=== PATIENT | male | born 1955 | race Caucasian/White ===

== ENCOUNTER 2017-01-30 09:12 | Emergency (ER) | payer MEDICAID, OTHER ==
[~2017-01-30] VITALS: Ht 175.3 cm; Wt 84.5 kg
[2017-01-30 09:19] VITALS: Ht 175.3 cm; Wt 84.5 kg
[2017-01-30] MEDS ORDERED: ASPIRIN 81 MG TAB PO STA (09:49)
[2017-01-30] MEDS ORDERED: NITROGLYCERIN 2% 1 GM OINT PKT TD STA (09:49)
[2017-01-30] MEDS ORDERED: NITROGLYCERIN (SL) 0.4 MG TAB SL PRN (10:00)
--- NOTE | 2017-01-30 10:32 | RADRPT ---
PROCEDURE: XR Chest. CLINICAL INDICATION: chest pain TECHNIQUE: Single frontal view of the chest was obtained COMPARISON: None FINDINGS: The heart and mediastinum are within normal limits. The lungs are clear. There is no pleural effusion or pneumothorax. RPTAT: AA IMPRESSION: No acute disease. .Steve Samuel MD, Date Time Electronically viewed and signed by .Steve Samuel MD, on 01/30/2017 10:31 .S/
[2017-01-30 10:54] LABS: ADD SCAN DIFF NO
[2017-01-30 10:56] LABS: BASOPHILS % 0.8 % (0.0-2.0); EOSINOPHILS # 0.1 10^3/ul (0.0-0.5); EOSINOPHILS % 2.6 % (0.0-7.0); HEMATOCRIT 42.7 % (42.0-52.0); HEMOGLOBIN 14.1 g/dl (14.0-18.0); LYMPHOCYTES # 0.8 10^3/ul (0.8-2.9); LYMPHOCYTES % 15.2 % (15.0-51.0); MEAN CORPUSCULAR VOLUME 84.9 fl (82.0-101.0); MEAN PLATELET VOLUME 9.2 fl (7.4-10.4); MONOCYTE # 0.5 10^3/ul (0.3-0.9); NEUTROPHIL # 3.6 10^3/ul (1.6-7.5); NEUTROPHILS % 71.8 % (39.0-77.0); PLATELET COUNT 323 10^3/UL (140-415); RED BLOOD COUNT 5.03 10^6/ul (4.70-6.10); RED CELL DISTRIBUTION WIDTH 14.4 % (11.5-14.5)
[2017-01-30 11:16] LABS: INR 1.07; PROTIME 13.9 Sec (12.2-14.2); PT RATIO 1.1
[2017-01-30 11:21] LABS: ANION GAP 13 (8-16); BLOOD UREA NITROGEN 19 mg/dl (7-20); CALCIUM 9.4 mg/dl (8.4-10.2); CARBON DIOXIDE 28 mmol/L (21-31); CHLORIDE 105 mmol/L (97-110); GLUCOSE 101 mg/dl (70-220); POTASSIUM 4.3 mmol/L (3.5-5.1); SODIUM 142 mmol/L (135-144)
[2017-01-30 11:34] LABS: TROPONIN-I < 0.012 ng/ml (0.00-0.12)
[2017-01-30] MEDS ORDERED: IBUP-1542 PO (11:52)
--- NOTE | 2017-01-30 11:54 | ERD ---
ER Documentation Chief Complaint Date/Time DATE: 01/30/17 TIME: 11:54 Chief Complaint BACK PAIN RADIATING TO CHEST PRESSURE HPI Patient is a 61-year-old male with no medical problems who presents with chest pain. He said that 3 weeks ago he started with pain on the left side that he described as a "fire". He thought it was a muscle pull and tried massage. He has had cough and shortness of breath and feels like he cannot catch a full breath. He has pressure-like pain in the left chest and back which is worsening over the past 3 weeks. Upon review of old medical records this is the patient's first visit to the emergency department. He says that his primary doctor is Dr. Rodriguez. ROS All systems reviewed and are negative except as per history of present illness. Medications Home Meds Active Scripts Ibuprofen* (Motrin*) 600 Mg Tab, 600 MG PO Q8, #30 TAB Prov:AJITH ALONZO MD 01/30/17 Allergies Allergies: Coded Allergies: No Known Allergy (Unverified , 01/30/17) PMhx/Soc Medical and Surgical Hx: pt denies Medical Hx History of Surgery: Yes (knee replacement) Anesthesia Reaction: No Hx Neurological Disorder: No Hx Respiratory Disorders: No Hx Cardiac Disorders: No Hx Psychiatric Problems: No Hx Miscellaneous Medical Probl: No Hx Alcohol Use: No Hx Substance Use: No Hx Tobacco Use: No Smoking Status: Never smoker FmHx Family History: No coronary disease Physical Exam Vitals Vital Signs Date Time Temp Pulse Resp B/P Pulse Ox O2 Delivery O2 Flow Rate FiO2 01/30/17 09:19 98.7 85 20 159/91 98 Physical Exam Const: No acute distress Head: Atraumatic Eyes: Normal Conjunctiva ENT: Normal External Ears, Nose and Mouth. Neck: Full range of motion..~ No meningismus. Resp: Clear to auscultation bilaterally Cardio: Regular rate and rhythm, no murmurs Abd: Soft, non tender, non distended. Normal bowel sounds Skin: No petechiae or rashes Back: No midline or flank tenderness Ext: No cyanosis, or edema Neur: Awake and alert Psych: Normal Mood and Affect Result Diagram: 01/30/17 1018 01/30/17 1018 Results 24 hrs Laboratory Tests Test 01/30/17 10:18 White Blood Count 5.010^3/ul Red Blood Count 5.0310^6/ul Hemoglobin 14.1g/dl Hematocrit 42.7% Mean Corpuscular Volume 84.9fl Mean Corpuscular Hemoglobin 28.0pg Mean Corpuscular Hemoglobin Concent 33.0g/dl Red Cell Distribution Width 14.4% Platelet Count 50116^3/UL Mean Platelet Volume 9.2fl Neutrophils % 71.8% Lymphocytes % 15.2% Monocytes % 9.0% Eosinophils % 2.6% Basophils % 0.8% Nucleated Red Blood Cells % 0.0/100WBC Neutrophils # 3.610^3/ul Lymphocytes # 0.810^3/ul Monocytes # 0.510^3/ul Eosinophils # 0.110^3/ul Basophils # 0.010^3/ul Nucleated Red Blood Cells # 0.010^3/ul Prothrombin Time 13.9Sec Prothrombin Time Ratio 1.1 INR International Normalized Ratio 1.07 Activated Partial Thromboplast Time 35.0Sec Sodium Level 142mmol/L Potassium Level 4.3mmol/L Chloride Level 105mmol/L Carbon Dioxide Level 28mmol/L Anion Gap 13 Blood Urea Nitrogen 19mg/dl Creatinine 0.70mg/dl Glucose Level 101mg/dl Calcium Level 9.4mg/dl Troponin I < 0.012ng/ml Current Medications Medications (Trade) Dose Ordered Sig/Veronika Route PRN Reason Start Time Stop Time Status Last Admin Dose Admin Aspirin (Aspirin) 162 mg ONCE STAT PO 01/30/17 09:49 01/30/17 09:50 DC 01/30/17 10:15 Nitroglycerin (Nitroglycerin 2% Oint) 1 inch ONCE STAT TD 01/30/17 09:49 01/30/17 09:50 DC 01/30/17 10:16 Nitroglycerin (Nitroglycerin (Sl Tab) 0.4 Mg) 1 tab Q5M UP TO 3 DOSES PRN SL CHEST PAIN 01/30/17 10:00 01/30/17 10:15 Procedures/MDM EKG #1 read by me: Rate/Rhythm: Regular rate and rhythm at a rate of 79 Intervals: Normal Impression: No evidence of ischemia or arrhythmia EKG #2 read by me: Rate/Rhythm: Regular rate and rhythm at a rate of 82 Intervals: Normal Impression: No evidence of ischemia or arrhythmia Chest x-ray negative per radiology. Patient is a 61-year-old female with no medical problems who presents with chest pain. I am concerned about potential acute coronary syndrome. At this point I doubt pneumonia, pneumothorax, pulmonary embolism, or aortic dissection. His initial laboratory studies are negative and 2 EKGs were negative. However the patient does not want to stay to be admitted in the hospital. I explained to him the risks and benefits of signing out AGAINST MEDICAL ADVICE including heart attack and and he understands. He still does not want to stay in the hospital. I told him he can return at any time for further workup. The patient understands the plan and is going to leave AGAINST MEDICAL ADVICE. Departure Diagnosis: Primary Impression: Chest pain Chest pain type: unspecified Qualified Code: R07.9 - Chest pain, unspecified type Condition: Fair Patient Instructions: Chest Pain, Uncertain Cause Referrals: Dr. Rodriguez your doctor Additional Instructions: Visite a donavan rojas para un EXAMEN.Regrese a estas instalaciones si no se mejora delvis esperbamos o delvis le félix. AJITH ALONZO MD Jan 30, 2017 11:54
[2017-01-30 12:17] VITALS: BP 143/75; PULSE 62; RESP 20; TEMP 98.7
== END 2017-01-30 12:20 | disposition home or self-care (01) ==
LOC: E/R 09:12
DX: R07.89 Other chest pain (principal); R40.2142 Coma scale, eyes open, spontaneous, at arrival to emergency department; R40.2252 Coma scale, best verbal response, oriented, at arrival to emergency department; R40.2362 Coma scale, best motor response, obeys commands, at arrival to emergency department; Z96.659 Presence of unspecified artificial knee joint
CPT/HCPCS: 36415; 71010; 80048; 84484; 85025; 85610; 85730; 93005; Z7502; Z7610

== ENCOUNTER 2017-02-24 23:35 | Inpatient (IN) | payer MEDICAID ==
[~2017-02-24] VITALS: Ht 175.3 cm; Wt 59.0 kg
[~2017-02-24 23:35] MED LIST: IBUP-1542 PO
[2017-02-24 23:39] VITALS: Ht 175.3 cm; Wt 59.0 kg
--- NOTE | 2017-02-25 00:18 | ERA ---
ER Documentation Chief Complaint Date/Time DATE: 02/25/17 TIME: 00:18 Chief Complaint Chest pain HPI The patient is a 61-year-old male, presenting to the ER because of left-sided chest pain and numbness radiating to the left upper back intermittently for more than a month, worse when he laid down, associated with pleuritic chest pain. He denies chest pain with exertion of vomiting or diaphoresis. He was seen in the ER about 3 weeks ago for similar symptoms, has not seen his physician yet. He denies fever, cough, syncope, near syncope, abdominal pain, vomiting, dysuria, diarrhea. He does not smoke nor drink Past medical history/surgical history: None ROS All systems reviewed and are negative except as per history of present illness. Medications Home Meds Active Scripts Ibuprofen* (Motrin*) 600 Mg Tab, 600 MG PO Q8, #30 TAB Prov:AJITH ALONZO MD 01/30/17 Allergies Allergies: Coded Allergies: No Known Allergy (Unverified , 01/30/17) PMhx/Soc History of Surgery: Yes (knee replacement) Anesthesia Reaction: No Hx Neurological Disorder: No Hx Respiratory Disorders: No Hx Cardiac Disorders: No Hx Psychiatric Problems: No Hx Miscellaneous Medical Probl: No Hx Alcohol Use: No Hx Substance Use: No Hx Tobacco Use: No Smoking Status: Never smoker Physical Exam Vitals Vital Signs Date Time Temp Pulse Resp B/P Pulse Ox O2 Delivery O2 Flow Rate FiO2 02/25/17 00:16 91 24 146/95 97 Room Air 02/24/17 23:39 97.9 97 20 156/94 97 Physical Exam Const: No acute distress. Head: Atraumatic. Eyes: Normal Conjunctiva. ENT: Normal External Ears, Nose and Mouth. Neck: Full range of motion. No meningismus. Resp: Clear to auscultation bilaterally. Cardio: Regular rate and rhythm. Abd: Soft, non distended, normal bowel sounds, non tender. Skin: No petechiae or rashes. Back: No midline or flank tenderness. Moderate thoracic spinal tenderness, no crepitus, no erythema Ext: No cyanosis, or edema. Neur: Awake and alert. No focal deficit Psych: Normal Mood and Affect. Result Diagram: 02/25/17 0045 02/25/17 0045 Results 24 hrs Laboratory Tests Test 02/25/17 00:45 White Blood Count 5.610^3/ul Red Blood Count 4.7510^6/ul Hemoglobin 13.3g/dl Hematocrit 40.0% Mean Corpuscular Volume 84.2fl Mean Corpuscular Hemoglobin 28.0pg Mean Corpuscular Hemoglobin Concent 33.3g/dl Red Cell Distribution Width 14.7% Platelet Count 87591^3/UL Mean Platelet Volume 9.1fl Neutrophils % 70.1% Lymphocytes % 14.2% Monocytes % 11.9% Eosinophils % 2.5% Basophils % 0.9% Nucleated Red Blood Cells % 0.0/100WBC Neutrophils # 3.910^3/ul Lymphocytes # 0.810^3/ul Monocytes # 0.710^3/ul Eosinophils # 0.110^3/ul Basophils # 0.110^3/ul Nucleated Red Blood Cells # 0.010^3/ul Prothrombin Time 13.3Sec Prothrombin Time Ratio 1.0 INR International Normalized Ratio 1.01 Activated Partial Thromboplast Time 33.0Sec Sodium Level 139mmol/L Potassium Level 3.7mmol/L Chloride Level 103mmol/L Carbon Dioxide Level 26mmol/L Anion Gap 14 Blood Urea Nitrogen 24mg/dl Creatinine 0.88mg/dl Glucose Level 105mg/dl Calcium Level 9.5mg/dl Troponin I < 0.012ng/ml Current Medications Medications (Trade) Dose Ordered Sig/Veronika Route PRN Reason Start Time Stop Time Status Last Admin Dose Admin Morphine Sulfate (morphine) 4 mg ONCE STAT IV 02/25/17 02:23 02/25/17 02:24 DC 02/25/17 02:32 Ondansetron HCl (Zofran Inj) 4 mg ONCE STAT IV 02/25/17 02:23 02/25/17 02:24 DC 02/25/17 02:32 IV Flush 10 ml 10 ml STK-MED ONCE .ROUTE 02/25/17 02:50 02/25/17 02:51 DC 02/25/17 02:50 Sodium Chloride 100 ml @ ud STK-MED ONCE .ROUTE 02/25/17 02:50 02/25/17 02:51 DC 02/25/17 02:50 Iohexol 100 ml @ ud STK-MED ONCE .ROUTE 02/25/17 02:50 02/25/17 02:51 DC 02/25/17 02:50 Sodium Chloride (NS) 1,000 ml @ 70 mls/hr [id number] IV 02/25/17 03:52 IV Flush (NS 3 ml) 3 ml PER PROTOCOL IV 02/25/17 04:00 Ondansetron HCl (Zofran Inj) 4 mg Q6H PRN IV NAUSEA AND/OR VOMITING 02/25/17 04:00 Acetaminophen (Tylenol Tab) 650 mg Q6H PRN PO PAIN LEVEL 1-3 OR FEVER 02/25/17 04:00 Morphine Sulfate (morphine) 2 mg Q4H PRN IV PAIN LEVEL 7-10 02/25/17 04:00 Docusate Sodium (Colace) 100 mg Q12H PRN PO CONSTIPATION 02/25/17 04:00 Bisacodyl (Dulcolax) 5 mg DAILY PRN PO CONSTIPATION 02/25/17 04:00 Pantoprazole (Protonix Iv) 40 mg DAILY@06 IV 02/25/17 06:00 Enoxaparin Sodium (Lovenox) 40 mg DAILY SC 02/25/17 09:00 Procedures/[place] [id number] Radiology Main Line: [phone] DIAGNOSTIC IMAGING REPORT Patient: HUNG STEVENS : 1955 Age: 61 Sex: M [id number] DOS: 02/25/17 0029 Ordering MD: SHON MABRY MD Location: E/R Room/Bed: PROCEDURE: CT angiogram of the chest with contrast. CLINICAL INDICATION: Chest and back pain. TECHNIQUE: CT angiogram of the chest was obtained using a multi-detector high -resolution CT. Contiguous axial images were obtained during the dynamic injection of 90 cc of Omnipaque 350 intravenous contrast. Coronal and sagittal reformatted images were obtained. 3-D reformatted images were also obtained. Images were reviewed on a PACS workstation. One or more of the following dose reduction techniques were used: - Automated exposure control. - Adjustment of the mA and/or kV according to patient size. - Use of iterative reconstruction technique. Exam CTD/vol = 16.79 mGy. Total exam DLP = 753.72 mGy-cm. COMPARISON: None. FINDINGS: The main pulmonary artery followed to the segmental divisions are well opacified. There is no filling defect or evidence of pulmonary embolism. The heart is normal in size. There is no pericardial thickening or effusion. The aorta is of normal course and caliber without evidence of aneurysm or dissection. There are multiple large left supraclavicular lymph nodes with the largest measuring 2.7 x 1.8 cm. The visualized thyroid is unremarkable. There are no enlarged axillary lymph nodes. There is increased soft tissue within the posterior mediastinum with a large conglomerate encasing the descending thoracic aorta and left main pulmonary artery which is moderately narrowed. There is extension to the paraspinal region from T2 through T10 levels. There are multiple enlarged paratracheal, prevascular and hilar lymph nodes, greater on the right, with the largest in the prevascular space measuring 3.5 x 2.6 cm. There is a small left-sided pleural effusion with underlying atelectasis. The central tracheobronchial tree is within normal limits. There are multiple enlarged retrocrural lymph nodes with the largest on the left measuring 1.8 x 1.9 cm. There are enlarged lymph nodes within the periaortic region with the largest on the left measuring 3.8 x 2.0 cm. IMPRESSION: No evidence of pulmonary embolism or aortic dissection. Posterior mediastinal and paraspinal soft tissue mass suggestive of neoplasm/ lymphoma. There is encasement of the descending thoracic aorta and left main pulmonary artery which is moderately narrowed. Moderate mediastinal and hilar adenopathy, greater on the left. There is mild left supraclavicular lymphadenopathy. Mild abdominal lymphadenopathy. Small left-sided pleural effusion. .Tae Loredo MD, MD Date Time Electronically viewed and signed by .Tae Loredo MD, on 02/25/2017 03:28 .T/ CC: SHON MABRY MD [place] [id number] Radiology Main Line: [phone] DIAGNOSTIC IMAGING REPORT Patient: HUNG STEVENS DOB: 1955 Age: 61 Sex: M MR #: [id number] DOS: 02/25/17 0029 Ordering MD: SHON MABRY MD Location: E/R Room/Bed: PROCEDURE: XR Chest. CLINICAL INDICATION: Chest pain. TECHNIQUE: Single frontal view of the chest. COMPARISON: 01/30/2017. FINDINGS: Cardiomegaly with tortuous thoracic aorta. Mild bibasilar atelectasis versus airspace disease. No signs of pleural fluid or pneumothorax are seen. The osseous structures and soft tissues are unremarkable. IMPRESSION: Mild bibasilar atelectasis versus airspace disease. RPTAT: [facility] Physician Raymond Date Time Electronically viewed and signed by Physician Raymond on 02/25/2017 00:52 RS/ CC: SHON MABRY MD EKG: At 2345 hrs. read by emergency physician Rate/Rhythm: Normal Sinus Rhythm 93 beats/min QRS, ST, T-waves: No ST elevation, no T inversion Impression: Normal EKG EKG: At 12:55 AM read by emergency physician Rate/Rhythm: Normal Sinus Rhythm 89 beats/min QRS, ST, T-waves: No ST elevation, no T inversion Impression: Normal EKG MEDICAL MAKING DECISION: The patient is a 61-year-old male, presenting with acute mediastinal mass, concerning for malignancy and/or lymphoma. He was treated with morphine 4 mg IV for pain, Zofran 4 mg IV for nausea with good response The differential diagnoses considered include but are not limited to acute coronary syndrome, acute myocardial infarction, pericarditis, pulmonary embolism , aortic dissection, pneumonia, pleural effusion, pneumothorax, GERD, chest wall pain. Departure Diagnosis: Primary Impression: Mediastinal mass Additional Impression: Anemia Condition: Stable Comments I discussed the findings with the patient. I discussed the patient with the on- call hospitalist Dr. Collazo who was made aware of the lab, the treatment, the patient condition. The patient is admitted to medical surgery bed at 3 AM The patient's blood pressure was elevated (>120/80) but appears stable without evidence of hypertension emergency or urgency. The patient was counseled about the risks of hypertension and urged to pursue outpatient monitoring and therapy within a week with their primary care physician. SHON MABRY MD Feb 25, 2017 00:18
--- NOTE | 2017-02-25 00:53 | RADRPT ---
PROCEDURE: XR Chest. CLINICAL INDICATION: Chest pain. TECHNIQUE: Single frontal view of the chest. COMPARISON: 01/30/2017. FINDINGS: Cardiomegaly with tortuous thoracic aorta. Mild bibasilar atelectasis versus airspace disease. No s igns of pleural fluid or pneumothorax are seen. The osseous structures and soft tissues are unremark able. IMPRESSION: Mild bibasilar atelectasis versus airspace disease. RPTAT: [facility] Physician Raymond Date Time Electronically viewed and signed by Physician Raymond on 02/25/2017 00:52 RS/
[2017-02-25 02:07] LABS: BASOPHIL # 0.1 10^3/ul (0.0-0.1); BASOPHILS % 0.9 % (0.0-2.0); EOSINOPHILS # 0.1 10^3/ul (0.0-0.5); EOSINOPHILS % 2.5 % (0.0-7.0); HEMOGLOBIN 13.3 g/dl (14.0-18.0); LYMPHOCYTES # 0.8 10^3/ul (0.8-2.9); LYMPHOCYTES % 14.2 % (15.0-51.0); MEAN CORPUSCULAR HGB CONC 33.3 g/dl (32.0-37.0); MEAN CORPUSCULAR VOLUME 84.2 fl (82.0-101.0); MEAN PLATELET VOLUME 9.1 fl (7.4-10.4); MONOCYTE # 0.7 10^3/ul (0.3-0.9); MONOCYTES % 11.9 % (0.0-11.0); NEUTROPHIL # 3.9 10^3/ul (1.6-7.5); NEUTROPHILS % 70.1 % (39.0-77.0); PLATELET COUNT 269 10^3/UL (140-415); RED BLOOD COUNT 4.75 10^6/ul (4.70-6.10); RED CELL DISTRIBUTION WIDTH 14.7 % (11.5-14.5); WHITE BLOOD COUNT 5.6 10^3/ul (4.8-10.8)
[2017-02-25 02:21] LABS: INR 1.01; PROTIME 13.3 Sec (12.2-14.2)
[2017-02-25 02:23] LABS: ANION GAP 14 (8-16); BLOOD UREA NITROGEN 24 mg/dl (7-20); CALCIUM 9.5 mg/dl (8.4-10.2); CARBON DIOXIDE 26 mmol/L (21-31); CHLORIDE 103 mmol/L (97-110); CREATININE 0.88 mg/dl (0.61-1.24); GLUCOSE 105 mg/dl (70-220); POTASSIUM 3.7 mmol/L (3.5-5.1); SODIUM 139 mmol/L (135-144)
[2017-02-25] MEDS ORDERED: morphine 4 MG/ML VIAL IV STA (02:23)
[2017-02-25] MEDS ORDERED: ONDANSETRON 4 MG INJ IV STA (02:23)
[2017-02-25 02:46] LABS: TROPONIN-I < 0.012 ng/ml (0.00-0.12)
[2017-02-25] MEDS ORDERED: IOHEXOL 100 ML ONE (02:50)
[2017-02-25] MEDS ORDERED: SOD CHLORIDE 0.9% 100 ML ONE (02:50)
--- NOTE | 2017-02-25 03:29 | RADRPT ---
PROCEDURE: CT angiogram of the chest with contrast. CLINICAL INDICATION: Chest and back pain. TECHNIQUE: CT angiogram of the chest was obtained using a multi-detector high-resolution CT. Con tiguous axial images were obtained during the dynamic injection of 90 cc of Omnipaque 350 intravenou s contrast. Coronal and sagittal reformatted images were obtained. 3-D reformatted images were als o obtained. Images were reviewed on a PACS workstation. One or more of the following dose reduction techniques were used: - Automated exposure control. - Adjustment of the mA and/or kV according to patient size. - Use of iterative reconstruction technique. Exam CTD/vol = 16.79 mGy. Total exam DLP = 753.72 mGy-cm. COMPARISON: None. FINDINGS: The main pulmonary artery followed to the segmental divisions are well opacified. There is no filli ng defect or evidence of pulmonary embolism. The heart is normal in size. There is no pericardial thickening or effusion. The aorta is of normal course and caliber without evidence of aneurysm or d issection. There are multiple large left supraclavicular lymph nodes with the largest measuring 2.7 x 1.8 cm. The visualized thyroid is unremarkable. There are no enlarged axillary lymph nodes. There is incre ased soft tissue within the posterior mediastinum with a large conglomerate encasing the descending thoracic aorta and left main pulmonary artery which is moderately narrowed. There is extension to t he paraspinal region from T2 through T10 levels. There are multiple enlarged paratracheal, prevascu lar and hilar lymph nodes, greater on the right, with the largest in the prevascular space measuring 3.5 x 2.6 cm. There is a small left-sided pleural effusion with underlying atelectasis. The centra l tracheobronchial tree is within normal limits. There are multiple enlarged retrocrural lymph nodes with the largest on the left measuring 1.8 x 1.9 cm. There are enlarged lymph nodes within the periaortic region with the largest on the left measu ring 3.8 x 2.0 cm. IMPRESSION: No evidence of pulmonary embolism or aortic dissection. Posterior mediastinal and paraspinal soft tissue mass suggestive of neoplasm/lymphoma. There is enc asement of the descending thoracic aorta and left main pulmonary artery which is moderately narrowed . Moderate mediastinal and hilar adenopathy, greater on the left. There is mild left supraclavicular l ymphadenopathy. Mild abdominal lymphadenopathy. Small left-sided pleural effusion. .Tae Loredo MD, Date Time Electronically viewed and signed by .Tae Loredo MD, on 02/25/2017 03:28 .T/
[2017-02-25] MEDS ORDERED: BISACODYL (EC) 5 MG TAB PO PRN (04:00)
[2017-02-25] MEDS ORDERED: DOCUSATE SODIUM 100 MG CAP PO PRN (04:00)
[2017-02-25] MEDS ORDERED: ONDANSETRON 4 MG INJ IV PRN (04:00)
[2017-02-25] MEDS ORDERED: NACL 0.9% 3 ML SYG IV SCH (04:00)
[2017-02-25 04:21] VITALS: TEMP 98.1
[2017-02-25] MEDS: PANTOPRAZOLE 40 MG INJ IV SCH (05:56)
[2017-02-25] MEDS: morphine 2 MG INJ IV PRN ×3 (05:56→23:18)
[2017-02-25] MEDS: SOD CHLORIDE 0.9% 1,000 ML IV SCH ×3 (05:57→23:17)
--- NOTE | 2017-02-25 06:45 | HP ---
Date/Time of Note Date/Time of Note DATE: 02/25/17 TIME: 06:26 Assessment/Plan VTE Prophylaxis VTE Prophylaxis Intervention: LMWH Lines/Catheters IV C[facility]ter Type (from [facility]): [facility] Assessment/Plan Chief Complaint/Hosp Course This is a 61-year-old male being admitted to the telemetry floor for: #1 chest pain: This likely could be ACS versus the cardiac mass. Patient did report that the pain does radiate down her left arm. The current time will trend troponins 3 will check echocardiogram. We will consult cardiology if clinically indicated. #2 mediastinal mass: CT scan shows:Posterior mediastinal and paraspinal soft tissue mass suggestive of neoplasm/lymphoma. There is encasement of the descending thoracic aorta and left main pulmonary artery which is moderately narrowed. There is also signs of hilar lymphadenopathy. At the current time we will work the patient up for possible underlying cancer until proven otherwise. Will consult hematology, CT surgery. Will order tumor markers. Further testing will be done based on the consultants recommendations and per the clinical course #3 DVT and GI prophylaxis: Lovenox, Protonix Further treatment strategy will be implemented as per the clinical course Problems: HPI/ROS Admit Date/Time Admit Date/Time Hx of Present Illness Chief complaint: Left-sided chest pain 1 month The patient is a 61-year-old male, presenting to the ER because of left-sided chest pain and numbness radiating to the left upper back intermittently for more than a month, worse when he laid down, associated with pleuritic chest pain. He denies chest pain with exertion of vomiting or diaphoresis. He was seen in the ER about 3 weeks ago for similar symptoms, has not seen his physician yet. He denies fever, cough, syncope, near syncope, abdominal pain, vomiting, dysuria, diarrhea. He does not smoke nor drink Allergies: NKDA Medications: None ROS Const: As per HPI Eyes : No pain discharge or redness or change in visual acuity ENT: No pain, sore throat, congestion, congestion, dysphagia or discharge Respiratory: As per HPI Cardiovascular: As per HPI GI : no change in appetite, abdominal pain, nausea, vomiting, diarrhea, constipation, or change in the color his stool Genitourinary: No dysuria, hematuria, flank pain , discharge or CVA tenderness Musculoskeletal: No joint pain, back pain, neck pain, restricted range of motion in neck or joints Skin: No rash, bruising or hives Neuro: No headache, dizziness, syncope, seizure, focal weakness Endocrine: No polyuria, polydipsia, temperature intolerance Psych: No hallucination, depression, anxiety or suicidal ideation PMH/Family/Social Past Medical History Medical History: no pertinent history Past Surgical History Left knee arthroscopy Family History Significant Family History: cancer (Unknown which cancer) Social History Alcohol Use: sober (Patient states he was a heavy drinker approximately 15 years ago) Smoking Status: Never smoker Drug Use: none Exam/Review of Systems Vital Signs Vitals Vital Signs Date Time Temp Pulse Resp B/P Pulse Ox O2 Delivery O2 Flow Rate FiO2 02/25/17 05:57 88 20 130/88 97 Room Air 02/25/17 04:21 98.1 Exam Exam General: Patient is well-developed male laying comfortably in bed. HEENT: Atraumatic, normocephalic. The pupils are equal, round and reactive. Extraocular motor are intact Neck: Supple with full range of motion. No rigidity or meningismus Chest: Nontender Lungs: Clear to auscultation bilaterally no crackles rales or wheezing Heart: Normal S1-S2, Regular rhythm and rate. No murmur, S3, or S4 Abdomen: Soft , nontender, nondistended , bowel sounds are present. No guarding no rebound tenderness , No masses or organomegaly. No costovertebral temporal angle mass Extremities: Normal to inspection, no edema no cyanosis Neurologic: Normal mental status, speech normal, cranial nerves II through XII are intact, motor and sensory are intact, no focal weakness Musculoskeletal: Tenderness to palpation at approximately the T8-T10 spine Additional Comments PROCEDURE: CT angiogram of the chest with contrast. CLINICAL INDICATION: Chest and back pain. TECHNIQUE: CT angiogram of the chest was obtained using a multi-detector high -resolution CT. Contiguous axial images were obtained during the dynamic injection of 90 cc of Omnipaque 350 intravenous contrast. Coronal and sagittal reformatted images were obtained. 3-D reformatted images were also obtained. Images were reviewed on a PACS workstation. One or more of the following dose reduction techniques were used: - Automated exposure control. - Adjustment of the mA and/or kV according to patient size. - Use of iterative reconstruction technique. Exam CTD/vol = 16.79 mGy. Total exam DLP = 753.72 mGy-cm. COMPARISON: None. FINDINGS: The main pulmonary artery followed to the segmental divisions are well opacified. There is no filling defect or evidence of pulmonary embolism. The heart is normal in size. There is no pericardial thickening or effusion. The aorta is of normal course and caliber without evidence of aneurysm or dissection. There are multiple large left supraclavicular lymph nodes with the largest measuring 2.7 x 1.8 cm. The visualized thyroid is unremarkable. There are no enlarged axillary lymph nodes. There is increased soft tissue within the posterior mediastinum with a large conglomerate encasing the descending thoracic aorta and left main pulmonary artery which is moderately narrowed. There is extension to the paraspinal region from T2 through T10 levels. There are multiple enlarged paratracheal, prevascular and hilar lymph nodes, greater on the right, with the largest in the prevascular space measuring 3.5 x 2.6 cm. There is a small left-sided pleural effusion with underlying atelectasis. The central tracheobronchial tree is within normal limits. There are multiple enlarged retrocrural lymph nodes with the largest on the left measuring 1.8 x 1.9 cm. There are enlarged lymph nodes within the periaortic region with the largest on the left measuring 3.8 x 2.0 cm. IMPRESSION: No evidence of pulmonary embolism or aortic dissection. Posterior mediastinal and paraspinal soft tissue mass suggestive of neoplasm/ lymphoma. There is encasement of the descending thoracic aorta and left main pulmonary artery which is moderately narrowed. Moderate mediastinal and hilar adenopathy, greater on the left. There is mild left supraclavicular lymphadenopathy. Mild abdominal lymphadenopathy. Small left-sided pleural effusion. .Tae Loredo MD, MD Date Time Electronically viewed and signed by .Tae Loredo MD, MD on 02/25/2017 03:28 PROCEDURE: XR Chest. CLINICAL INDICATION: Chest pain. TECHNIQUE: Single frontal view of the chest. COMPARISON: 01/30/2017. FINDINGS: Cardiomegaly with tortuous thoracic aorta. Mild bibasilar atelectasis versus airspace disease. No signs of pleural fluid or pneumothorax are seen. The osseous structures and soft tissues are unremarkable. IMPRESSION: Mild bibasilar atelectasis versus airspace disease. RPTAT: [facility] Marge Armstrong Physician Date Time Electronically viewed and signed by Marge Armstrong Physician on 02/25/2017 00:52 RS/ Labs Result Diagram: 02/25/17 0045 02/25/17 0045 Medications Medications Current Medications Sodium Chloride (NS) 1,000 ml @ 70 mls/hr [id number] IV Last administered on 05:57; Admin Dose 70 MLS/HR; Start 02/25/17 at 03:52 Ondansetron HCl (Zofran Inj) 4 mg Q6H PRN IV NAUSEA AND/OR VOMITING; Start 02/25 at 04:00 Acetaminophen (Tylenol Tab) 650 mg Q6H PRN PO PAIN LEVEL 1-3 OR FEVER; Start at 04:00 Morphine Sulfate (morphine) 2 mg Q4H PRN IV PAIN LEVEL 7-10 Last administered on 02/25/17 05:56; Admin Dose 2 MG; Start 02/25/17 at 04:00 Docusate Sodium (Colace) 100 mg Q12H PRN PO CONSTIPATION; Start 02/25/17 at 04: 00 Bisacodyl (Dulcolax) 5 mg DAILY PRN PO CONSTIPATION; Start 02/25/17 at 04:00 Pantoprazole (Protonix Iv) 40 mg DAILY@06 IV Last administered on 02/25/17 05: 56; Admin Dose 40 MG; Start 02/25/17 at 06:00 Enoxaparin Sodium (Lovenox) 40 mg DAILY SC ; Start 02/25/17 at 09:00 JD PINA Feb 25, 2017 06:37
[2017-02-25 07:18] LABS: CREATINE KINASE 461 IU/L (23-200)
[2017-02-25 07:32] LABS: CK-MB 5.98 ng/ml (0.0-2.4); TROPONIN-I < 0.012 ng/ml (0.00-0.12)
[2017-02-25 09:00] VITALS: BP 139/87; PULSE 89; RESP 20
--- NOTE | 2017-02-25 10:21 | CONS ---
Date/Time of Note Date/Time of Note DATE: 02/25/17 TIME: 10:12 Assessment/Plan Assessment/Plan Chief Complaint/Hosp Course Posterior mediastinal and paraspinal soft tissue mass suggestive of neoplasm/ lymphoma. Moderate mediastinal and hilar adenopathy, greater on the left. mild left supraclavicular lymphadenopathy. Mild abdominal lymphadenopathy. There is encasement of the descending thoracic aorta and left main pulmonary artery which is moderately narrowed. REVIEW RADIOLOGY BIOCHEMICAL W-U, TUMOR MARKERS TISSUE DX WITH ACCESSIBLE LN- WILL D/W RADIOLOGY Small left-sided pleural effusion. chest pain: This likely could be ACS versus the cardiac mass. troponins 3 echocardiogram. consult cardiology DVT and GI prophylaxis: Lovenox, Protonix _ Problems: Consultation Date/Type/Reason Admit Date/Time Date of Consultation: Feb 25, 2017 Type of Consultation: hemeonc Reason for Consultation mediastinal mass Referring Provider: JD PINA of Present Illness The patient is a 61-year-old male, presenting to the ER because of left-sided chest pain and numbness radiating to the left upper back intermittently for more than a month, worse when he laid down, associated with pleuritic chest pain. He denies chest pain with exertion of vomiting or diaphoresis. He was seen in the ER about 3 weeks ago for similar symptoms, has not seen his physician yet. He denies fever, cough, syncope, near syncope, abdominal pain, vomiting, dysuria, diarrhea. He does not smoke nor drink he was found post mediastinal mass on CT PULM ANGIO I was asked to provide hemeonc consult Allergies: NKDA Medications: None ROS Const: As per HPI Eyes : No pain discharge or redness or change in visual acuity ENT: No pain, sore throat, congestion, congestion, dysphagia or discharge Respiratory: As per HPI Cardiovascular: As per HPI GI : no change in appetite, abdominal pain, nausea, vomiting, diarrhea, constipation, or change in the color his stool Genitourinary: No dysuria, hematuria, flank pain , discharge or CVA tenderness Musculoskeletal: No joint pain, back pain, neck pain, restricted range of motion in neck or joints Skin: No rash, bruising or hives Neuro: No headache, dizziness, syncope, seizure, focal weakness Endocrine: No polyuria, polydipsia, temperature intolerance Psych: No hallucination, depression, anxiety or suicidal ideation PMH/Family/Social Past Medical History Medical History: no pertinent history Past Surgical History Left knee arthroscopy Family History Significant Family History: cancer (Unknown which cancer) Social History Alcohol Use: sober (Patient states he was a heavy drinker approximately 15 years ago) Smoking Status: Never smoker Drug Use: none General: Patient is well-developed male laying comfortably in bed. HEENT: Atraumatic, normocephalic. The pupils are equal, round and reactive. Extraocular motor are intact Neck: Supple with full range of motion. No rigidity or meningismus Chest: Nontender Lungs: Clear to auscultation bilaterally no crackles rales or wheezing Heart: Normal S1-S2, Regular rhythm and rate. No murmur, S3, or S4 Abdomen: Soft , nontender, nondistended , bowel sounds are present. No guarding no rebound tenderness , No masses or organomegaly. No costovertebral temporal angle mass Extremities: Normal to inspection, no edema no cyanosis Neurologic: Normal mental status, speech normal, cranial nerves II through XII are intact, motor and sensory are intact, no focal weakness Musculoskeletal: Tenderness to palpation at approximately the T8-T10 spine LN- Past Medical History Medical History: no pertinent history Social History Alcohol Use: sober (Patient states he was a heavy drinker approximately 15 years ago) Smoking Status: Never smoker Drug Use: none Exam/Review of Systems Vital Signs Vitals Vital Signs Date Time Temp Pulse Resp B/P Pulse Ox O2 Delivery O2 Flow Rate FiO2 02/25/17 06:30 85 20 126/85 99 Room Air 02/25/17 04:21 98.1 Exam General: Patient is well-developed male laying comfortably in bed. HEENT: Atraumatic, normocephalic. The pupils are equal, round and reactive. Extraocular motor are intact Neck: Supple with full range of motion. No rigidity or meningismus Chest: Nontender Lungs: Clear to auscultation bilaterally no crackles rales or wheezing Heart: Normal S1-S2, Regular rhythm and rate. No murmur, S3, or S4 Abdomen: Soft , nontender, nondistended , bowel sounds are present. No guarding no rebound tenderness , No masses or organomegaly. No costovertebral temporal angle mass Extremities: Normal to inspection, no edema no cyanosis Neurologic: Normal mental status, speech normal, cranial nerves II through XII are intact, motor and sensory are intact, no focal weakness Musculoskeletal: Tenderness to palpation at approximately the T8-T10 spine Results Result Diagram: 02/25/17 0045 02/25/17 0045 Results 24 hrs Laboratory Tests Test 02/25/17 00:45 02/25/17 06:41 White Blood Count 5.6 Red Blood Count 4.75 Hemoglobin 13.3 L Hematocrit 40.0 L Mean Corpuscular Volume 84.2 Mean Corpuscular Hemoglobin 28.0 L Mean Corpuscular Hemoglobin Concent 33.3 Red Cell Distribution Width 14.7 H Platelet Count 269 Mean Platelet Volume 9.1 Neutrophils % 70.1 Lymphocytes % 14.2 L Monocytes % 11.9 H Eosinophils % 2.5 Basophils % 0.9 Nucleated Red Blood Cells % 0.0 Neutrophils # 3.9 Lymphocytes # 0.8 Monocytes # 0.7 Eosinophils # 0.1 Basophils # 0.1 Nucleated Red Blood Cells # 0.0 Prothrombin Time 13.3 Prothrombin Time Ratio 1.0 INR International Normalized Ratio 1.01 Activated Partial Thromboplast Time 33.0 Sodium Level 139 Potassium Level 3.7 Chloride Level 103 Carbon Dioxide Level 26 Anion Gap 14 Blood Urea Nitrogen 24 H Creatinine 0.88 Glucose Level 105 Calcium Level 9.5 Troponin I < 0.012 < 0.012 Creatine Kinase 461 H Creatine Kinase Index 1.3 Creatinine Kinase MB (Mass) 5.98 H Medications Medications Current Medications Sodium Chloride (NS) 1,000 ml @ 70 mls/hr [id number] IV Last administered on 05:57; Admin Dose 70 MLS/HR; Start 02/25/17 at 03:52 Ondansetron HCl (Zofran Inj) 4 mg Q6H PRN IV NAUSEA AND/OR VOMITING; Start 02/25 at 04:00 Acetaminophen (Tylenol Tab) 650 mg Q6H PRN PO PAIN LEVEL 1-3 OR FEVER; Start at 04:00 Morphine Sulfate (morphine) 2 mg Q4H PRN IV PAIN LEVEL 7-10 Last administered on 02/25/17 05:56; Admin Dose 2 MG; Start 02/25/17 at 04:00 Docusate Sodium (Colace) 100 mg Q12H PRN PO CONSTIPATION; Start 02/25/17 at 04: 00 Bisacodyl (Dulcolax) 5 mg DAILY PRN PO CONSTIPATION; Start 02/25/17 at 04:00 Pantoprazole (Protonix Iv) 40 mg DAILY@06 IV Last administered on 02/25/17t 05: 56; Admin Dose 40 MG; Start 02/25/17 at 06:00 Enoxaparin Sodium (Lovenox) 40 mg DAILY SC ; Start 02/25/17 at 09:00 Procedures Procedures [place] [id number] Radiology Main Line: [phone] DIAGNOSTIC IMAGING REPORT Patient: HUNG STEVENS : 1955 Age: 61 Sex: M MR #: [id number] DOS: 02/25/17 0029 Ordering MD: SHON MABRY MD Location: E/R Room/Bed: PROCEDURE: CT angiogram of the chest with contrast. CLINICAL INDICATION: Chest and back pain. TECHNIQUE: CT angiogram of the chest was obtained using a multi-detector high -resolution CT. Contiguous axial images were obtained during the dynamic injection of 90 cc of Omnipaque 350 intravenous contrast. Coronal and sagittal reformatted images were obtained. 3-D reformatted images were also obtained. Images were reviewed on a PACS workstation. One or more of the following dose reduction techniques were used: - Automated exposure control. - Adjustment of the mA and/or kV according to patient size. - Use of iterative reconstruction technique. Exam CTD/vol = 16.79 mGy. Total exam DLP = 753.72 mGy-cm. COMPARISON: None. FINDINGS: The main pulmonary artery followed to the segmental divisions are well opacified. There is no filling defect or evidence of pulmonary embolism. The heart is normal in size. There is no pericardial thickening or effusion. The aorta is of normal course and caliber without evidence of aneurysm or dissection. There are multiple large left supraclavicular lymph nodes with the largest measuring 2.7 x 1.8 cm. The visualized thyroid is unremarkable. There are no enlarged axillary lymph nodes. There is increased soft tissue within the posterior mediastinum with a large conglomerate encasing the descending thoracic aorta and left main pulmonary artery which is moderately narrowed. There is extension to the paraspinal region from T2 through T10 levels. There are multiple enlarged paratracheal, prevascular and hilar lymph nodes, greater on the right, with the largest in the prevascular space measuring 3.5 x 2.6 cm. There is a small left-sided pleural effusion with underlying atelectasis. The central tracheobronchial tree is within normal limits. There are multiple enlarged retrocrural lymph nodes with the largest on the left measuring 1.8 x 1.9 cm. There are enlarged lymph nodes within the periaortic region with the largest on the left measuring 3.8 x 2.0 cm. IMPRESSION: No evidence of pulmonary embolism or aortic dissection. Posterior mediastinal and paraspinal soft tissue mass suggestive of neoplasm/ lymphoma. There is encasement of the descending thoracic aorta and left main pulmonary artery which is moderately narrowed. Moderate mediastinal and hilar adenopathy, greater on the left. There is mild left supraclavicular lymphadenopathy. Mild abdominal lymphadenopathy. Small left-sided pleural effusion. .Tae Loredo MD, MD Date Time Electronically viewed and signed by .Tae Loredo MD, on 02/25/2017 03:28 .T/ CC: SHON MABRY MD, VERA M MD Feb 25, 2017 10:20
[2017-02-25] MEDS: ENOXAPARIN 40 MG/0.4 ML SYG SC SCH (10:40)
[2017-02-25 11:27] LABS: ALBUMIN 4.7 g/dl (3.3-4.9); BILIRUBIN,INDIRECT 0.4 mg/dl (0-1.1); BILIRUBIN,TOTAL 0.4 mg/dl (0.2-1.3); TOTAL PROTEIN 7.3 g/dl (6.1-8.1)
[2017-02-25 12:02] LABS: LACTATE DEHYDROGENASE 1425 IU/L (313-618); URIC ACID 6.7 mg/dl (3.1-7.9)
[2017-02-25 13:33] LABS: CARCINOEMBRYONIC ANTIGEN 1.3 ng/ml (0.0-5.0)
[2017-02-25 13:34] LABS: CREATINE KINASE 380 IU/L (23-200)
[2017-02-25 13:46] LABS: CK-MB 4.67 ng/ml (0.0-2.4); TROPONIN-I < 0.012 ng/ml (0.00-0.12)
[2017-02-25 14:13] LABS: FOLATE > 20.0 ng/ml (2.8-20.0)
--- NOTE | 2017-02-25 14:40 | CONS ---
Date/Time of Note Date/Time of Note DATE: 02/25/17 TIME: 14:36 Assessment/Plan Assessment/Plan Additional Assessment/Plan Posterior mediastinal mass associated with the descending thoracic aorta patient will need a biopsy plan to proceed with VATS biopsy if interventional radiology is unable to give us a biopsy discussed with the patient and the family all questions answered Consultation Date/Type/Reason Admit Date/Time Reason for Consultation Evaluation for mediastinal mass Hx of Present Illness This is a 60-year-old male complaining of left chest pain for the past 30 days patient was admitted through the emergency room had a CAT scan done which showed a posterior mediastinal mass The mass is encasing the descending thoracic aorta and its about 3.5 cm ENT: no complaints Respiratory: no complaints Cardiovascular: no complaints Genitourinary: no complaints Musculoskeletal: no complaints Skin: no complaints Past Medical History Medical History: no pertinent history Past Surgical History Past Surgical Hx: no surgical history, noncontributory Family History Significant Family History: no pertinent family hx Social History Alcohol Use: sober (Patient states he was a heavy drinker approximately 15 years ago) Smoking Status: Never smoker Drug Use: none Exam/Review of Systems Vital Signs Vitals Vital Signs Date Time Temp Pulse Resp B/P Pulse Ox O2 Delivery O2 Flow Rate FiO2 02/25/17 06:30 85 20 126/85 99 Room Air 02/25/17 04:21 98.1 Exam Eyes: EOMI, PERRL, nl conjunctiva, nl lids, nl sclera ENMT: nl external ears & nose, nl lips & teeth, nl nasal mucosa & septum Neck: non-tender, supple Respiratory: clear to auscultation, normal air movement Cardiovascular: nl pulses, regular rate and rhythm Gastrointestinal: nl liver, spleen, non-tender, soft Results Result Diagram: 02/25/17 0045 02/25/17 0045 Results 24 hrs Laboratory Tests Test 02/25/17 00:45 02/25/17 06:41 02/25/17 10:48 02/25/17 12:40 White Blood Count 5.6 Red Blood Count 4.75 Hemoglobin 13.3 L Hematocrit 40.0 L Mean Corpuscular Volume 84.2 Mean Corpuscular Hemoglobin 28.0 L Mean Corpuscular Hemoglobin Concent 33.3 Red Cell Distribution Width 14.7 H Platelet Count 269 Mean Platelet Volume 9.1 Neutrophils % 70.1 Lymphocytes % 14.2 L Monocytes % 11.9 H Eosinophils % 2.5 Basophils % 0.9 Nucleated Red Blood Cells % 0.0 Neutrophils # 3.9 Lymphocytes # 0.8 Monocytes # 0.7 Eosinophils # 0.1 Basophils # 0.1 Nucleated Red Blood Cells # 0.0 Prothrombin Time 13.3 Prothrombin Time Ratio 1.0 INR International Normalized Ratio 1.01 Activated Partial Thromboplast Time 33.0 Sodium Level 139 Potassium Level 3.7 Chloride Level 103 Carbon Dioxide Level 26 Anion Gap 14 Blood Urea Nitrogen 24 H Creatinine 0.88 Glucose Level 105 Calcium Level 9.5 Troponin I < 0.012 < 0.012 < 0.012 Creatine Kinase 461 H 380 H Creatine Kinase Index 1.3 1.2 Creatinine Kinase MB (Mass) 5.98 H 4.67 H Erythrocyte Sedimentation Rate 9 Uric Acid 6.7 Ferritin 215.0 Total Bilirubin 0.4 Direct Bilirubin 0.00 Indirect Bilirubin 0.4 Aspartate Amino Transf (AST/SGOT) 54 H Alanine Aminotransferase (ALT/SGPT) 54 Alkaline Phosphatase 90 Lactate Dehydrogenase 1425 H Total Protein 7.3 Albumin 4.7 Alpha Fetoprotein 1.58 Carcinoembryonic Antigen 1.3 Folate > 20.0 H Thyroid Stimulating Hormone (TSH) 2.430 Medications Medications Current Medications Sodium Chloride (NS) 1,000 ml @ 70 mls/hr [id number] IV Last administered on 05:57; Admin Dose 70 MLS/HR; Start 02/25/17 at 03:52 Ondansetron HCl (Zofran Inj) 4 mg Q6H PRN IV NAUSEA AND/OR VOMITING; Start 02/25 at 04:00 Acetaminophen (Tylenol Tab) 650 mg Q6H PRN PO PAIN LEVEL 1-3 OR FEVER; Start at 04:00 Morphine Sulfate (morphine) 2 mg Q4H PRN IV PAIN LEVEL 7-10 Last administered on 02/25/17 05:56; Admin Dose 2 MG; Start 02/25/17 at 04:00 Docusate Sodium (Colace) 100 mg Q12H PRN PO CONSTIPATION; Start 02/25/17 at 04: 00 Bisacodyl (Dulcolax) 5 mg DAILY PRN PO CONSTIPATION; Start 02/25/17 at 04:00 Pantoprazole (Protonix Iv) 40 mg DAILY@06 IV Last administered on 02/25/17 05: 56; Admin Dose 40 MG; Start 02/25/17 at 06:00 Enoxaparin Sodium (Lovenox) 40 mg DAILY SC Last administered on 02/25/17 10:40 ; Admin Dose 40 MG; Start 02/25/17 at 09:00 MISSY SOLANO MD Feb 25, 2017 14:40
--- NOTE | 2017-02-25 16:16 | RADRPT ---
Echocardiogram Report Patient Name: HUNG STEVENS Gender: Male Date: 1955 Study Date: 25-Feb-2017 Carpenter Inspector: Janee [facility] Location: [facility] Ref. Physician: JD PINA Quality: Adequate Procedures: Transthoracic echocardiogram with complete 2D, M-Mode, and doppler examination. Indications: Chest Pain. 2D/M Mode Doppler Measurement Value Normal Ranges Measurement Value Normal Ranges LVIDd 2D 4.6 3.5 - 5.6 cm AV Peak Rafa 1.3 m/sec LVIDs 2D 3.3 2.1 - 4.1 cm AV Peak PG 7.0 mmHg FS 2D 28.1 % LVOT Peak Rafa 1.0 m/sec LVPWd 2D 1.1 0.6 - 1.1 cm LVOT Peak PG 4.0 mmHg IVSd 2D 1.2 0.6 - 1.1 cm MV E Peak Rafa 1.0 m/sec IVS/LVPW 2D 1.0 MV A Peak Rafa 1.1 m/sec AoR Diam 2D 3.2 2.0 - 3.7 cm MV E/A 0.9 LA/Ao 2D 1 0 - 1 MV Decel Time 246 msec EDV 2D 99.3 cm3 MV E/A 0.9 ESV 2D 36.9 cm3 TR Peak Rafa 3.0 m/sec LA Dimen 2D 3.7 2.3 - 4.0 cm TR Peak PG 36.0 mmHg RVSP 39.0 mmHg Findings Left Ventricle: Normal left ventricular systolic function. Normal left ventricular cavity size. Normal left ventricular wall thickness. Ejection fraction is visually estimated at 60 %. Tissue Doppler/Mitral Doppler indices are consistent with impaired relaxation (Stage I diastolic dysfunction). Right Ventricle: Normal right ventricular size. Normal right ventricular systolic function. Left Atrium: The left atrium is normal in size. Right Atrium: The right atrium is normal in size. Mitral Valve: Mild mitral leaflet calcification. Mild mitral annular calcification. Trace mitral regurgitation. Aortic Valve: Normal appearance of the aortic valve. No significant aortic stenosis or insufficiency. Tricuspid Valve: Normal appearance of the tricuspid valve. Estimated peak PA systolic pressure 39 mmHg. There is mild tricuspid regurgitation. Pericardium: Normal pericardium with no significant pericardial effusion. Aorta: Normal aortic root. IVC: Normal size and normal respiratory collapse consistent with normal right atrial pressure. Conclusions 1.Normal left ventricular systolic function. Normal left ventricular cavity size. Normal left ventricular wall thickness. Ejection fraction is visually estimated at 60 %. Tissue Doppler/Mitral Doppler indices are consistent with impaired relaxation (Stage I diastolic dysfunction). 2.Mild mitral leaflet calcification. Mild mitral annular calcification. Trace mitral regurgitation. 3.Normal appearance of the tricuspid valve. Estimated peak PA systolic pressure 39 mmHg. There is mild tricuspid regurgitation. Electronically Signed By: Ryder Walls 25-Feb-2017 16:14:58 -0700 Patient Name: HUNG STEVENS Study Date: 25-Feb-2017 [id number]
[2017-02-25] MEDS: ACETAMINOPHEN 325 MG TAB PO PRN (20:09)
[2017-02-25 22:49] VITALS: BP 156/95; RESP 18
[2017-02-26] MEDS: morphine 2 MG INJ IV PRN ×3 (04:08→23:00)
[2017-02-26 05:48] LABS: BASOPHIL # 0.1 10^3/ul (0.0-0.1); EOSINOPHILS # 0.2 10^3/ul (0.0-0.5); EOSINOPHILS % 4.4 % (0.0-7.0); HEMATOCRIT 39.8 % (42.0-52.0); HEMOGLOBIN 13.1 g/dl (14.0-18.0); LYMPHOCYTES # 0.8 10^3/ul (0.8-2.9); LYMPHOCYTES % 16.7 % (15.0-51.0); MEAN CORPUSCULAR HGB CONC 32.9 g/dl (32.0-37.0); MEAN PLATELET VOLUME 9.5 fl (7.4-10.4); MONOCYTE # 0.7 10^3/ul (0.3-0.9); MONOCYTES % 13.7 % (0.0-11.0); NEUTROPHIL # 3.2 10^3/ul (1.6-7.5); NEUTROPHILS % 63.8 % (39.0-77.0); PLATELET COUNT 256 10^3/UL (140-415); RED BLOOD COUNT 4.68 10^6/ul (4.70-6.10); RED CELL DISTRIBUTION WIDTH 15.1 % (11.5-14.5)
[2017-02-26] MEDS: PANTOPRAZOLE 40 MG INJ IV SCH (05:54)
[2017-02-26 05:57] LABS: ADD SCAN DIFF NO
[2017-02-26 06:02] LABS: ALBUMIN/GLOBULIN RATIO 1.73; BILIRUBIN,INDIRECT 0.2 mg/dl (0-1.1); BILIRUBIN,TOTAL 0.2 mg/dl (0.2-1.3); CALCIUM 8.7 mg/dl (8.4-10.2); CHOL/HDL RATIO 3.5 RATIO; CREATININE 0.75 mg/dl (0.61-1.24); POTASSIUM 3.6 mmol/L (3.5-5.1); TOTAL PROTEIN 6.3 g/dl (6.1-8.1)
[2017-02-26 06:31] LABS: THYROID STIMULATING HORMONE 2.8 MIU/L (0.465-4.680)
[2017-02-26 07:19] VITALS: BP 167/93; RESP 19
[2017-02-26] MEDS: ENOXAPARIN 40 MG/0.4 ML SYG SC SCH (09:26)
[2017-02-26 09:30] VITALS: BP 141/83
[2017-02-26] MEDS ORDERED: hydrALAzine 20 MG INJ IV PRN (10:30)
--- NOTE | 2017-02-26 16:50 | PN ---
Date/Time of Note Date/Time of Note DATE: 02/26/17 TIME: 16:46 Assessment/Plan VTE Prophylaxis VTE Prophylaxis Intervention: LMWH Lines/Catheters IV [facility]ter Type (from [facility]): Peripheral IV Urinary Cath still in place: No Assessment/Plan Chief Complaint/Hosp Course A/P: 61-year-old male being admitted to the telemetry floor for: #1 chest pain: This likely could be ACS versus the cardiac mass. Patient did report that the pain does radiate down her left arm. Has ruled out for ACS. - pain meds, monitor #2 mediastinal mass: CT scan shows: Posterior mediastinal and paraspinal soft tissue mass suggestive of neoplasm/lymphoma. There is encasement of the descending thoracic aorta and left main pulmonary artery which is moderately narrowed. There is also signs of hilar lymphadenopathy. - f/u hematology, CT surgery rec's, tumor markers. - will order for CT guided biopsy, otherwise pt would need VATS biopsy per CTS rec's #3 DVT and GI prophylaxis: Lovenox, Protonix Further treatment strategy will be implemented as per the clinical course Problems: Subjective 24 Hr Interval Summary Free Text/Dictation Pt has some mild cp. No acute events overnight otherwise. Exam/Review of Systems Vital Signs Vitals Vital Signs Date Time Temp Pulse Resp B/P Pulse Ox O2 Delivery O2 Flow Rate FiO2 02/26/17 07:19 97.5 83 19 167/93 99 02/25/17 09:00 Room Air Intake and Output 02/25/17 02/25/17 02/26/17 15:00 23:00 07:00 Intake Total 1400 ml 1250 ml Balance 1400 ml 1250 ml Exam General: Patient is well-developed male laying comfortably in bed. HEENT: Atraumatic, normocephalic. The pupils are equal, round and reactive. Extraocular motor are intact Neck: Supple with full range of motion. No rigidity or meningismus Lungs: Clear to auscultation bilaterally no crackles rales or wheezing Heart: Normal S1-S2, Regular rhythm and rate. No murmur, S3, or S4 Abdomen: Soft , nontender, nondistended , bowel sounds are present. No guarding no rebound tenderness , No masses or organomegaly. No costovertebral temporal angle mass Extremities: Normal to inspection, no edema no cyanosis Neurologic: Normal mental status, speech normal, cranial nerves II through XII are intact, motor and sensory are intact, no focal weakness Musculoskeletal: some tenderness to palpation at approximately the T8-T10 spine Results Result Diagram: 02/26/1741402/26/17414 Results 24 hrs Laboratory Tests Test 02/26/17 04:15 White Blood Count 5.0 Red Blood Count 4.68 L Hemoglobin 13.1 L Hematocrit 39.8 L Mean Corpuscular Volume 85.0 Mean Corpuscular Hemoglobin 28.0 L Mean Corpuscular Hemoglobin Concent 32.9 Red Cell Distribution Width 15.1 H Platelet Count 256 Mean Platelet Volume 9.5 Neutrophils % 63.8 Lymphocytes % 16.7 Monocytes % 13.7 H Eosinophils % 4.4 Basophils % 1.0 Nucleated Red Blood Cells % 0.0 Neutrophils # 3.2 Lymphocytes # 0.8 Monocytes # 0.7 Eosinophils # 0.2 Basophils # 0.1 Nucleated Red Blood Cells # 0.0 Sodium Level 141 Potassium Level 3.6 Chloride Level 102 Carbon Dioxide Level 27 Anion Gap 16 Blood Urea Nitrogen 14 # Creatinine 0.75 Glucose Level 104 Hemoglobin A1c 6.0 H Calcium Level 8.7 Phosphorus Level 2.9 Magnesium Level 2.0 Total Bilirubin 0.2 Direct Bilirubin 0.00 Indirect Bilirubin 0.2 Aspartate Amino Transf (AST/SGOT) 44 Alanine Aminotransferase (ALT/SGPT) 46 Alkaline Phosphatase 77 Total Protein 6.3 # Albumin 4.0 Globulin 2.30 Albumin/Globulin Ratio 1.73 Triglycerides Level 98 Cholesterol Level 127 LDL Cholesterol, Calculated 71 HDL Cholesterol 36 Cholesterol/HDL Ratio 3.5 Thyroid Stimulating Hormone (TSH) 2.800 Medications Medications Current Medications Sodium Chloride (NS) 1,000 ml @ 70 mls/hr [id number] IV Last administered on 23:17; Admin Dose 70 MLS/HR; Start 02/25/17 at 03:52 Ondansetron HCl (Zofran Inj) 4 mg Q6H PRN IV NAUSEA AND/OR VOMITING; Start 02/25 at 04:00 Acetaminophen (Tylenol Tab) 650 mg Q6H PRN PO PAIN LEVEL 1-3 OR FEVER Last administered on 02/25/17 20:09; Admin Dose 650 MG; Start 02/25/17 at 04:00 Morphine Sulfate (morphine) 2 mg Q4H PRN IV PAIN LEVEL 7-10 Last administered on 02/26/17 04:08; Admin Dose 2 MG; Start 02/25/17 at 04:00 Docusate Sodium (Colace) 100 mg Q12H PRN PO CONSTIPATION; Start 02/25/17 at 04: 00 Bisacodyl (Dulcolax) 5 mg DAILY PRN PO CONSTIPATION; Start 02/25/17 at 04:00 Pantoprazole (Protonix Iv) 40 mg DAILY@06 IV Last administered on 02/26/17 05: 54; Admin Dose 40 MG; Start 02/25/17 at 06:00 Enoxaparin Sodium (Lovenox) 40 mg DAILY SC Last administered on 02/26/17 09:26 ; Admin Dose 40 MG; Start 02/25/17 at 09:00 Hydralazine HCl (Apresoline) 10 mg Q6H PRN IV ELEVATED BLOOD PRESSURE; Start at 10:30 Docusate Sodium (Colace) 100 mg BID PO ; Start 02/26/17 at 21:00 ALMA MULLINS Feb 26, 2017 16:50
[2017-02-26 19:08] VITALS: BP 156/90; RESP 18
[2017-02-26] MEDS: DOCUSATE SODIUM 100 MG CAP PO SCH (20:58)
--- NOTE | 2017-02-26 22:02 | CONS ---
Date/Time of Note Date/Time of Note DATE: 02/26/17 TIME: 22:00 Assessment/Plan Assessment/Plan Chief Complaint/Hosp Course Posterior mediastinal and paraspinal soft tissue mass suggestive of neoplasm/ lymphoma. Moderate mediastinal and hilar adenopathy, greater on the left. mild left supraclavicular lymphadenopathy. Mild abdominal lymphadenopathy. There is encasement of the descending thoracic aorta and left main pulmonary artery which is moderately narrowed. RADIOLOGY- REVIEWED BIOCHEMICAL W-U, TUMOR MARKERS TISSUE DX WITH ACCESSIBLE LN- WILL D/W RADIOLOGY CT guided biopsy, otherwise pt would need VATS biopsy per CTS rec's COMPLETE STAGING WITH CT ABD, PELVIS Small left-sided pleural effusion. chest pain: This likely could be ACS versus the cardiac mass. troponins 3 echocardiogram. consult cardiology DVT and GI prophylaxis: Lovenox, Protonix _ Problems: Consultation Date/Type/Reason Admit Date/Time Feb 25, 2017 at 03:38 Initial Consult Date 02/25/17 Type of Consultation: hemeon Referring Provider: JD PINA 24 HR Interval Summary Free Text/Dictation ALL NOTED W-UP IN PROGRESS Exam/Review of Systems Vital Signs Vitals Vital Signs Date Time Temp Pulse Resp B/P Pulse Ox O2 Delivery O2 Flow Rate FiO2 02/26/17 19:08 98.2 80 18 156/90 98 02/25/17 09:00 Room Air Intake and Output 02/25/17 02/25/17 02/26/17 15:00 23:00 07:00 Intake Total 1400 ml 1250 ml Balance 1400 ml 1250 ml Exam General: Patient is well-developed male laying comfortably in bed. HEENT: Atraumatic, normocephalic. The pupils are equal, round and reactive. Extraocular motor are intact Neck: Supple with full range of motion. No rigidity or meningismus Chest: Nontender Lungs: Clear to auscultation bilaterally no crackles rales or wheezing Heart: Normal S1-S2, Regular rhythm and rate. No murmur, S3, or S4 Abdomen: Soft , nontender, nondistended , bowel sounds are present. No guarding no rebound tenderness , No masses or organomegaly. No costovertebral temporal angle mass Extremities: Normal to inspection, no edema no cyanosis Neurologic: Normal mental status, speech normal, cranial nerves II through XII are intact, motor and sensory are intact, no focal weakness Musculoskeletal: Tenderness to palpation at approximately the T8-T10 spine Results Result Diagram: 02/26/175 02/26/17414 Results 24 hrs Laboratory Tests Test 02/26/17 04:15 White Blood Count 5.0 Red Blood Count 4.68 L Hemoglobin 13.1 L Hematocrit 39.8 L Mean Corpuscular Volume 85.0 Mean Corpuscular Hemoglobin 28.0 L Mean Corpuscular Hemoglobin Concent 32.9 Red Cell Distribution Width 15.1 H Platelet Count 256 Mean Platelet Volume 9.5 Neutrophils % 63.8 Lymphocytes % 16.7 Monocytes % 13.7 H Eosinophils % 4.4 Basophils % 1.0 Nucleated Red Blood Cells % 0.0 Neutrophils # 3.2 Lymphocytes # 0.8 Monocytes # 0.7 Eosinophils # 0.2 Basophils # 0.1 Nucleated Red Blood Cells # 0.0 Sodium Level 141 Potassium Level 3.6 Chloride Level 102 Carbon Dioxide Level 27 Anion Gap 16 Blood Urea Nitrogen 14 # Creatinine 0.75 Glucose Level 104 Hemoglobin A1c 6.0 H Calcium Level 8.7 Phosphorus Level 2.9 Magnesium Level 2.0 Total Bilirubin 0.2 Direct Bilirubin 0.00 Indirect Bilirubin 0.2 Aspartate Amino Transf (AST/SGOT) 44 Alanine Aminotransferase (ALT/SGPT) 46 Alkaline Phosphatase 77 Total Protein 6.3 # Albumin 4.0 Globulin 2.30 Albumin/Globulin Ratio 1.73 Triglycerides Level 98 Cholesterol Level 127 LDL Cholesterol, Calculated 71 HDL Cholesterol 36 Cholesterol/HDL Ratio 3.5 Thyroid Stimulating Hormone (TSH) 2.800 Medications Medications Current Medications Sodium Chloride (NS) 1,000 ml @ 70 mls/hr [id number] IV Last administered on 23:17; Admin Dose 70 MLS/HR; Start 02/25/17 at 03:52 Ondansetron HCl (Zofran Inj) 4 mg Q6H PRN IV NAUSEA AND/OR VOMITING; Start 02/25 at 04:00 Acetaminophen (Tylenol Tab) 650 mg Q6H PRN PO PAIN LEVEL 1-3 OR FEVER Last administered on 02/25/17 20:09; Admin Dose 650 MG; Start 02/25/17 at 04:00 Morphine Sulfate (morphine) 2 mg Q4H PRN IV PAIN LEVEL 7-10 Last administered on 02/26/17 16:55; Admin Dose 2 MG; Start 02/25/17 at 04:00 Docusate Sodium (Colace) 100 mg Q12H PRN PO CONSTIPATION; Start 02/25/17 at 04: 00 Bisacodyl (Dulcolax) 5 mg DAILY PRN PO CONSTIPATION; Start 02/25/17 at 04:00 Pantoprazole (Protonix Iv) 40 mg DAILY@06 IV Last administered on 02/26/17 05: 54; Admin Dose 40 MG; Start 02/25/17 at 06:00 Enoxaparin Sodium (Lovenox) 40 mg DAILY SC Last administered on 02/26/17 09:26 ; Admin Dose 40 MG; Start 02/25/17 at 09:00 Hydralazine HCl (Apresoline) 10 mg Q6H PRN IV ELEVATED BLOOD PRESSURE; Start at 10:30 Docusate Sodium (Colace) 100 mg BID PO Last administered on 02/26/17 20:58; Admin Dose 100 MG; Start 02/26/17 at 21:00 MARIANGEL BRUNER MD Feb 26, 2017 22:02
[2017-02-26] MEDS ORDERED: BARIUM SULF 2% 450 ML BTL (BERRY SMOOTHIE) PO ONE (22:30)
[2017-02-26] MEDS: SOD CHLORIDE 0.9% 1,000 ML IV SCH (22:46)
[2017-02-27] MEDS: morphine 2 MG INJ IV PRN ×2 (03:15→22:35)
[2017-02-27] MEDS: SOD CHLORIDE 0.9% 1,000 ML IV SCH ×2 (03:16→13:04)
[2017-02-27 04:32] LABS: PROTEIN, TOTAL 6.7 g/dL (6.1-8.1)
[2017-02-27 05:00] LABS: ADD SCAN DIFF NO
[2017-02-27 05:16] LABS: BASOPHILS % 0.7 % (0.0-2.0); EOSINOPHILS # 0.1 10^3/ul (0.0-0.5); HEMATOCRIT 41.8 % (42.0-52.0); HEMOGLOBIN 13.6 g/dl (14.0-18.0); LYMPHOCYTES # 0.8 10^3/ul (0.8-2.9); LYMPHOCYTES % 12.6 % (15.0-51.0); MEAN CORPUSCULAR HEMOGLOBIN 27.4 pg (29.0-33.0); MEAN CORPUSCULAR HGB CONC 32.5 g/dl (32.0-37.0); MEAN CORPUSCULAR VOLUME 84.1 fl (82.0-101.0); MEAN PLATELET VOLUME 9.2 fl (7.4-10.4); MONOCYTE # 0.7 10^3/ul (0.3-0.9); MONOCYTES % 10.7 % (0.0-11.0); NEUTROPHIL # 4.5 10^3/ul (1.6-7.5); NEUTROPHILS % 73.7 % (39.0-77.0); PLATELET COUNT 266 10^3/UL (140-415); RED BLOOD COUNT 4.97 10^6/ul (4.70-6.10); RED CELL DISTRIBUTION WIDTH 14.7 % (11.5-14.5); WHITE BLOOD COUNT 6.1 10^3/ul (4.8-10.8)
[2017-02-27 05:59] LABS: MAGNESIUM 1.9 mg/dl (1.7-2.5); PHOSPHORUS 3.3 mg/dl (2.5-4.9)
[2017-02-27] MEDS: PANTOPRAZOLE 40 MG INJ IV SCH (06:01)
[2017-02-27 07:35] LABS: CREATININE 0.72 mg/dl (0.61-1.24); POTASSIUM 3.8 mmol/L (3.5-5.1)
[2017-02-27 08:11] VITALS: BP 134/82; RESP 19
--- NOTE | 2017-02-27 10:03 | PN ---
Date/Time of Note Date/Time of Note DATE: 02/27/17 TIME: 10:02 Assessment/Plan Lines/Catheters IV Catheter Type (from Nrsg): Peripheral IV Phelps in Place (from Nrsg): No Assessment/Plan Chief Complaint/Hosp Course This is a 60-year-old male complaining of left chest pain for the past 30 days patient was admitted through the emergency room had a CAT scan done which showed a posterior mediastinal mass in addition to hilar adenopathy and supraclavicular adenopathy The mass is encasing the descending thoracic aorta and its about 3.5 cm We will ask interventional radiology to do a biopsy If CT-guided biopsy is not possible patient will need VATS biopsy Problems: Subjective 24 Hr Interval Summary Mediastinal adenopathy Hilar adenopathy Left supraclavicular adenopathy Constitutional: improved Pain Control: well controlled Exam/Review of Systems Vital Signs Vitals Vital Signs Date Time Temp Pulse Resp B/P Pulse Ox O2 Delivery O2 Flow Rate FiO2 02/27/17 08:11 98.0 79 19 134/82 99 02/25/17 09:00 Room Air Intake and Output 02/26/17 02/26/17 02/27/17 15:00 23:00 07:00 Intake Total 1400 ml 1390 ml Output Total 1000 ml Balance 1400 ml 390 ml Exam Eyes: EOMI, nl conjunctiva, nl lids, nl sclera ENMT: mucosa pink and moist, nl external ears & nose, nl lips & teeth, nl nasal mucosa & septum Neck: non-tender, supple Respiratory: clear to auscultation, normal air movement Cardiovascular: nl pulses, regular rate and rhythm Gastrointestinal: nl liver, spleen, non-tender, soft Results Result Diagram: 02/27/17 0444 02/27/17 0444 MISSY SOLANO MD Feb 27, 2017 10:03
[2017-02-27] MEDS ORDERED: IOHEXOL 300MG/ML 150 ML BTL ONE (10:59)
[2017-02-27] MEDS ORDERED: SOD CHLORIDE 0.9% 100 ML ONE (10:59)
--- NOTE | 2017-02-27 11:47 | RADRPT ---
PROCEDURE: CT Abdomen and Pelvis with and without contrast. CLINICAL INDICATION: Neoplasm staging TECHNIQUE: CT of the abdomen and pelvis was performed on a multidetector scanner both before and f ollowing the uncomplicated IV administration of 100 cc of Omnipaque 300. Coronal and sagittal image s were reformatted from the axial data set. One or more of the following dose reduction techniques were used: automated exposure control, adjustment of the mA and/or kV according to patient size, us e of iterative reconstruction technique. CTDI = 13.57, 14.14 mGy. DLP = 1591.63 mGy-cm. COMPARISON: CT, 02/25/2017 FINDINGS: CT abdomen: Mid thoracic paravertebral mass is again seen, incompletely imaged, measuring approximately 7.0 x 6. 6 cm (4-1). Enlarged paravertebral and retrocrural lymph nodes identified in the lower chest measur ing up to 23 x 21 mm on the left (4-34). Mild left pleural effusion is noted. The heart size is no rmal, without pericardial effusion. Subcentimeter hepatic hypodensities are identified measuring up to 6 mm, too small to characterize on this exam. Gallbladder, biliary tree, pancreas, adrenal glan ds and kidneys are unremarkable. No urolithiasis or obstructive uropathy is identified. Splenic si ze is within normal limits, measuring 11.5 cm. The stomach is partially collapsed, but appears alvarez sly unremarkable. The aorta is of normal caliber. Multiple enlarged periaortic retroperitoneal lymph nodes are identi fied measuring up to 30 x 20 mm on the left (4-62). The rj hepatis region is clear. CT pelvis: No bowel obstruction, free intraperitoneal air or abscess is identified. Colonic diverticulosis is seen without diverticulitis. The appendix is well visualized and normal. There is no colitis. Con fluent lymphadenopathy is seen centrally within the small bowel mesenteric fat, measuring approximat ivette 6.9 x 4.9 cm (4-64). Bilateral iliac and pelvic sidewall lymphadenopathy is seen as well measuri ng up to 2.5 x 2.1 cm on the left (4-133). Urinary bladder is grossly unremarkable. No pelvic free fluid is identified. The surrounding osseous structures are remarkable for degenerative spondylosis of the spine. No ost eolytic or osteoblastic lesion is detected. IMPRESSION: 1. Lymphadenopathy is identified in the periaortic retroperitoneum, small bowel mesenteric fat, and bilateral pelvis, as described above. Mid thoracic paravertebral mass is again seen, along with pa ravertebral and retrocrural lymphadenopathy in the lower chest. Findings are compatible with neopla sm, possibly lymphoma. 2. Mild left pleural effusion is again seen, grossly stable. 3. Nonspecific subcentimeter hepatic hypodensities are identified, possibly cysts, though too small to definitively characterize on this exam. 4. Colonic diverticulosis is seen without diverticulitis. RPTAT: HDWR .Ministerio Patel MD, MD Date Time Electronically viewed and signed by .Ministerio Patel MD, MD on 02/27/2017 11:46 .R/
--- NOTE | 2017-02-27 12:02 | PN ---
Date/Time of Note Date/Time of Note DATE: 02/27/17 TIME: 12:00 Assessment/Plan VTE Prophylaxis VTE Prophylaxis Intervention: LMWH Lines/Catheters [facility] Per[facility] IV Urinary Cath still in place: No Assessment/Plan Chief Complaint/Hosp Course A/P: 61-year-old male being admitted to the telemetry floor for: #1 chest pain: This likely could be ACS versus the cardiac mass. Patient did report that the pain does radiate down her left arm. Has ruled out for ACS. - pain meds, monitor #2 mediastinal mass: CT scan shows: Posterior mediastinal and paraspinal soft tissue mass suggestive of neoplasm/lymphoma. There is encasement of the descending thoracic aorta and left main pulmonary artery which is moderately narrowed. There is also signs of hilar lymphadenopathy. - f/u hematology, CT surgery rec's, tumor markers. - pending is CT guided biopsy (likely to be done in 24 hrs), otherwise pt would need VATS biopsy per CTS rec's #3 DVT and GI prophylaxis: Lovenox, Protonix Further treatment strategy will be implemented as per the clinical course Problems: Subjective 24 Hr Interval Summary Free Text/Dictation Pt had CT A/P performed yesterday. Awaiting biopsy in 24 hrs, no acute events overnight. Exam/Review of Systems Vital Signs Vitals Vital Signs Date Time Temp Pulse Resp B/P Pulse Ox O2 Delivery O2 Flow Rate FiO2 02/27/17 08:11 98.0 79 19 134/82 99 02/25/17 09:00 Room Air Intake and Output 02/26/17 02/26/17 02/27/17 15:00 23:00 07:00 Intake Total 1400 ml 1390 ml Output Total 1000 ml Balance 1400 ml 390 ml Exam General: Patient is well-developed male laying comfortably in bed. HEENT: Atraumatic, normocephalic. The pupils are equal, round and reactive. Extraocular motor are intact Neck: Supple with full range of motion. No rigidity or meningismus Lungs: Clear to auscultation bilaterally no crackles rales or wheezing Heart: Normal S1-S2, Regular rhythm and rate. No murmur, S3, or S4 Abdomen: Soft , nontender, nondistended , bowel sounds are present. No guarding no rebound tenderness , No masses or organomegaly. No costovertebral temporal angle mass Extremities: Normal to inspection, no edema no cyanosis Neurologic: Normal mental status, speech normal, cranial nerves II through XII are intact, motor and sensory are intact, no focal weakness Musculoskeletal: some tenderness to palpation at approximately the T8-T10 spine Results Result Diagram: 02/27/174 02/27/174 Results 24 hrs Laboratory Tests Test 02/27/17 04:44 White Blood Count 6.1 # Red Blood Count 4.97 Hemoglobin 13.6 L Hematocrit 41.8 L Mean Corpuscular Volume 84.1 Mean Corpuscular Hemoglobin 27.4 L Mean Corpuscular Hemoglobin Concent 32.5 Red Cell Distribution Width 14.7 H Platelet Count 266 Mean Platelet Volume 9.2 Neutrophils % 73.7 Lymphocytes % 12.6 L Monocytes % 10.7 Eosinophils % 2.0 Basophils % 0.7 Nucleated Red Blood Cells % 0.0 Neutrophils # 4.5 Lymphocytes # 0.8 Monocytes # 0.7 Eosinophils # 0.1 Basophils # 0.0 Nucleated Red Blood Cells # 0.0 Sodium Level 138 Potassium Level 3.8 Chloride Level 103 Carbon Dioxide Level 27 Anion Gap 12 Blood Urea Nitrogen 9 Creatinine 0.72 Glucose Level 100 Calcium Level 9.0 Phosphorus Level 3.3 Magnesium Level 1.9 Medications Medications Current Medications Sodium Chloride (NS) 1,000 ml @ 70 mls/hr [id number] IV Last administered on 03:16; Admin Dose 70 MLS/HR; Start 02/25/17 at 03:52 Ondansetron HCl (Zofran Inj) 4 mg Q6H PRN IV NAUSEA AND/OR VOMITING; Start 02/25 at 04:00 Acetaminophen (Tylenol Tab) 650 mg Q6H PRN PO PAIN LEVEL 1-3 OR FEVER Last administered on 02/25/17 20:09; Admin Dose 650 MG; Start 02/25/17 at 04:00 Morphine Sulfate (morphine) 2 mg Q4H PRN IV PAIN LEVEL 7-10 Last administered on 02/27/17 03:15; Admin Dose 2 MG; Start 02/25/17 at 04:00 Docusate Sodium (Colace) 100 mg Q12H PRN PO CONSTIPATION; Start 02/25/17 at 04: 00 Bisacodyl (Dulcolax) 5 mg DAILY PRN PO CONSTIPATION; Start 02/25/17 at 04:00 Pantoprazole (Protonix Iv) 40 mg DAILY@06 IV Last administered on 02/27/17 06: 01; Admin Dose 40 MG; Start 02/25/17 at 06:00 Enoxaparin Sodium (Lovenox) 40 mg DAILY SC Last administered on 02/26/17 09:26 ; Admin Dose 40 MG; Start 02/25/17 at 09:00 Hydralazine HCl (Apresoline) 10 mg Q6H PRN IV ELEVATED BLOOD PRESSURE; Start at 10:30 Docusate Sodium (Colace) 100 mg BID PO Last administered on 02/26/17 20:58; Admin Dose 100 MG; Start 02/26/17 at 21:00 ALMA MULLINS Feb 27, 2017 12:02
[2017-02-27] MEDS: DOCUSATE SODIUM 100 MG CAP PO SCH ×3 (15:53→22:42)
[2017-02-27] MEDS: ENOXAPARIN 40 MG/0.4 ML SYG SC SCH (15:55)
[2017-02-27 19:25] VITALS: BP 168/88; RESP 20
[2017-02-28] VITALS (12 sets, daily range): BP systolic 142–173; BP diastolic 66–100; PULSE 78–86; RESP 16–20
[2017-02-28] MEDS: ACETAMINOPHEN 325 MG TAB PO PRN ×2 (00:07→18:32)
--- NOTE | 2017-02-28 00:22 | CONS ---
Date/Time of Note Date/Time of Note DATE: 02/27/17 TIME: 19:13 vk le Assessment/Plan Assessment/Plan Chief Complaint/Hosp Course Posterior mediastinal and paraspinal soft tissue mass suggestive of neoplasm/ lymphoma. Moderate mediastinal and hilar adenopathy, greater on the left. mild left supraclavicular lymphadenopathy. Mild abdominal lymphadenopathy. There is encasement of the descending thoracic aorta and left main pulmonary artery which is moderately narrowed. RADIOLOGY- REVIEWED BIOCHEMICAL W-U - LDH- VERY HIGH, TUMOR MARKERS- P TISSUE DX WITH ACCESSIBLE LN- WILL D/W RADIOLOGY CT guided biopsy, otherwise pt would need VATS biopsy per CTS rec's CT ABD, PELVIS- 1. Lymphadenopathy is identified in the periaortic retroperitoneum, small bowel mesenteric fat, and bilateral pelvis, as described above. 2. Mild left pleural effusion is again seen, grossly stable. 3. Nonspecific subcentimeter hepatic hypodensities are identified, possibly cysts, though too small to definitively characterize on this exam. BMBX- TO COMPLETE STAGING Small left-sided pleural effusion. chest pain: This likely could be ACS versus the cardiac mass. troponins 3 echocardiogram. consult cardiology DVT and GI prophylaxis: Lovenox, Protonix _ Problems: Consultation Date/Type/Reason Admit Date/Time Feb 25, 2017 at 03:38 Initial Consult Date 02/25/17 Type of Consultation: [facility] Referring Provider: JD PINA 24 HR Interval Summary Free Text/Dictation all noted no new events Exam/Review of Systems Vital Signs Vitals Vital Signs Date Time Temp Pulse Resp B/P Pulse Ox O2 Delivery O2 Flow Rate FiO2 02/27/17 19:25 97.9 81 20 168/88 95 02/25/17 09:00 Room Air Intake and Output 02/27/17 02/27/17 02/28/17 15:00 23:00 07:00 Intake Total 3260 ml Output Total 2000 ml Balance 1260 ml Exam General: Patient is well-developed male laying comfortably in bed. HEENT: Atraumatic, normocephalic. The pupils are equal, round and reactive. Extraocular motor are intact Neck: Supple with full range of motion. No rigidity or meningismus Chest: Nontender Lungs: Clear to auscultation bilaterally no crackles rales or wheezing Heart: Normal S1-S2, Regular rhythm and rate. No murmur, S3, or S4 Abdomen: Soft , nontender, nondistended , bowel sounds are present. No guarding no rebound tenderness , No masses or organomegaly. No costovertebral temporal angle mass Extremities: Normal to inspection, no edema no cyanosis Neurologic: Normal mental status, speech normal, cranial nerves II through XII are intact, motor and sensory are intact, no focal weakness Musculoskeletal: Tenderness to palpation at approximately the T8-T10 spine Results Result Diagram: 02/27/1744302/27/17443 Results 24 hrs Laboratory Tests Test 02/27/17 04:44 White Blood Count 6.1 # Red Blood Count 4.97 Hemoglobin 13.6 L Hematocrit 41.8 L Mean Corpuscular Volume 84.1 Mean Corpuscular Hemoglobin 27.4 L Mean Corpuscular Hemoglobin Concent 32.5 Red Cell Distribution Width 14.7 H Platelet Count 266 Mean Platelet Volume 9.2 Neutrophils % 73.7 Lymphocytes % 12.6 L Monocytes % 10.7 Eosinophils % 2.0 Basophils % 0.7 Nucleated Red Blood Cells % 0.0 Neutrophils # 4.5 Lymphocytes # 0.8 Monocytes # 0.7 Eosinophils # 0.1 Basophils # 0.0 Nucleated Red Blood Cells # 0.0 Sodium Level 138 Potassium Level 3.8 Chloride Level 103 Carbon Dioxide Level 27 Anion Gap 12 Blood Urea Nitrogen 9 Creatinine 0.72 Glucose Level 100 Calcium Level 9.0 Phosphorus Level 3.3 Magnesium Level 1.9 Medications Medications Current Medications Sodium Chloride (NS) 1,000 ml @ 70 mls/hr [id number] IV Last administered on 03:16; Admin Dose 70 MLS/HR; Start 02/25/17 at 03:52 Ondansetron HCl (Zofran Inj) 4 mg Q6H PRN IV NAUSEA AND/OR VOMITING; Start 02/25 at 04:00 Acetaminophen (Tylenol Tab) 650 mg Q6H PRN PO PAIN LEVEL 1-3 OR FEVER Last administered on 02/28/17 00:07; Admin Dose 650 MG; Start 02/25/17 at 04:00 Morphine Sulfate (morphine) 2 mg Q4H PRN IV PAIN LEVEL 7-10 Last administered on 02/27/17 22:35; Admin Dose 2 MG; Start 02/25/17 at 04:00 Docusate Sodium (Colace) 100 mg Q12H PRN PO CONSTIPATION; Start 02/25/17 at 04: 00 Bisacodyl (Dulcolax) 5 mg DAILY PRN PO CONSTIPATION; Start 02/25/17 at 04:00 Enoxaparin Sodium (Lovenox) 40 mg DAILY SC Last administered on 02/27/17 15:55 ; Admin Dose 40 MG; Start 02/25/17 at 09:00 Hydralazine HCl (Apresoline) 10 mg Q6H PRN IV ELEVATED BLOOD PRESSURE; Start at 10:30 Docusate Sodium (Colace) 100 mg BID PO Last administered on 02/27/17 22:42; Admin Dose 100 MG; Start 02/26/17 at 21:00 Pantoprazole (Protonix Tab) 40 mg DAILY@06 PO ; Start 02/28/17 at 06:00 Procedures Procedures [place] [id number] Radiology Main Line: [phone] DIAGNOSTIC IMAGING REPORT Patient: HUNG STEVENS : 1955 Age: 61 Sex: M MR #: [id number] DOS: 02/27/17 0700 Ordering MD: MARIANGEL BRUNER MD [place] [facility] [place]Bed: [facility] PROCEDURE: CT Abdomen and Pelvis with and without contrast. CLINICAL INDICATION: Neoplasm staging TECHNIQUE: CT of the abdomen and pelvis was performed on a multidetector scanner both before and following the uncomplicated IV administration of 100 cc of Omnipaque 300. Coronal and sagittal images were reformatted from the axial data set. One or more of the following dose reduction techniques were used: automated exposure control, adjustment of the mA and/or kV according to patient size, use of iterative reconstruction technique. CTDI = 13.57, 14.14 mGy. DLP = 1591.63 mGy-cm. COMPARISON: CT, 02/25/2017 FINDINGS: CT abdomen: Mid thoracic paravertebral mass is again seen, incompletely imaged, measuring approximately 7.0 x 6.6 cm (4-1). Enlarged paravertebral and retrocrural lymph nodes identified in the lower chest measuring up to 23 x 21 mm on the left (4-34 ). Mild left pleural effusion is noted. The heart size is normal, without pericardial effusion. Subcentimeter hepatic hypodensities are identified measuring up to 6 mm, too small to characterize on this exam. Gallbladder, biliary tree, pancreas, adrenal glands and kidneys are unremarkable. No urolithiasis or obstructive uropathy is identified. Splenic size is within normal limits, measuring 11.5 cm. The stomach is partially collapsed, but appears grossly unremarkable. The aorta is of normal caliber. Multiple enlarged periaortic retroperitoneal lymph nodes are identified measuring up to 30 x 20 mm on the left (4-62). The rj hepatis region is clear. CT pelvis: No bowel obstruction, free intraperitoneal air or abscess is identified. Colonic diverticulosis is seen without diverticulitis. The appendix is well visualized and normal. There is no colitis. Confluent lymphadenopathy is seen centrally within the small bowel mesenteric fat, measuring approximately 6.9 x 4.9 cm (4-64). Bilateral iliac and pelvic sidewall lymphadenopathy is seen as well measuring up to 2.5 x 2.1 cm on the left (4-133). Urinary bladder is grossly unremarkable. No pelvic free fluid is identified. The surrounding osseous structures are remarkable for degenerative spondylosis of the spine. No osteolytic or osteoblastic lesion is detected. IMPRESSION: 1. Lymphadenopathy is identified in the periaortic retroperitoneum, small bowel mesenteric fat, and bilateral pelvis, as described above. Mid thoracic paravertebral mass is again seen, along with paravertebral and retrocrural lymphadenopathy in the lower chest. Findings are compatible with neoplasm, possibly lymphoma. 2. Mild left pleural effusion is again seen, grossly stable. 3. Nonspecific subcentimeter hepatic hypodensities are identified, possibly cysts, though too small to definitively characterize on this exam. 4. Colonic diverticulosis is seen without diverticulitis. [place] [address] Radiology Main Line: [phone] DIAGNOSTIC IMAGING REPORT Patient: HUNG STEVENS : 1955 Age: 61 Sex: M MR #: [id number] DOS: 02/27/17 0700 Ordering MD: MARIANGEL BRUNER MD Location: [facility] [place] Room[place]Bed: [facility] PROCEDURE: CT Abdomen and Pelvis with and without contrast. CLINICAL INDICATION: Neoplasm staging TECHNIQUE: CT of the abdomen and pelvis was performed on a multidetector scanner both before and following the uncomplicated IV administration of 100 cc of Omnipaque 300. Coronal and sagittal images were reformatted from the axial data set. One or more of the following dose reduction techniques were used: automated exposure control, adjustment of the mA and/or kV according to patient size, use of iterative reconstruction technique. CTDI = 13.57, 14.14 mGy. DLP = 1591.63 mGy-cm. COMPARISON: CT, 02/25/2017 FINDINGS: CT abdomen: Mid thoracic paravertebral mass is again seen, incompletely imaged, measuring approximately 7.0 x 6.6 cm (4-1). Enlarged paravertebral and retrocrural lymph nodes identified in the lower chest measuring up to 23 x 21 mm on the left (4-34 ). Mild left pleural effusion is noted. The heart size is normal, without pericardial effusion. Subcentimeter hepatic hypodensities are identified measuring up to 6 mm, too small to characterize on this exam. Gallbladder, biliary tree, pancreas, adrenal glands and kidneys are unremarkable. No urolithiasis or obstructive uropathy is identified. Splenic size is within normal limits, measuring 11.5 cm. The stomach is partially collapsed, but appears grossly unremarkable. The aorta is of normal caliber. Multiple enlarged periaortic retroperitoneal lymph nodes are identified measuring up to 30 x 20 mm on the left (4-62). The rj hepatis region is clear. CT pelvis: No bowel obstruction, free intraperitoneal air or abscess is identified. Colonic diverticulosis is seen without diverticulitis. The appendix is well visualized and normal. There is no colitis. Confluent lymphadenopathy is seen centrally within the small bowel mesenteric fat, measuring approximately 6.9 x 4.9 cm (4-64). Bilateral iliac and pelvic sidewall lymphadenopathy is seen as well measuring up to 2.5 x 2.1 cm on the left (4-133). Urinary bladder is grossly unremarkable. No pelvic free fluid is identified. The surrounding osseous structures are remarkable for degenerative spondylosis of the spine. No osteolytic or osteoblastic lesion is detected. IMPRESSION: 1. Lymphadenopathy is identified in the periaortic retroperitoneum, small bowel mesenteric fat, and bilateral pelvis, as described above. Mid thoracic paravertebral mass is again seen, along with paravertebral and retrocrural lymphadenopathy in the lower chest. Findings are compatible with neoplasm, possibly lymphoma. 2. Mild left pleural effusion is again seen, grossly stable. 3. Nonspecific subcentimeter hepatic hypodensities are identified, possibly cysts, though too small to definitively characterize on this exam. 4. Colonic diverticulosis is seen without diverticulitis. RPTAT: HDWR .Ministerio Patel MD, Date Time Electronically viewed and signed by .Ministerio Patel MD, MD on 02/27/2017 11: 46 .R/ CC: MARIANGEL BRUNER MD RPTAT: HDWR .Ministerio Patel MD, MD Date Time Electronically viewed and signed by .Ministerio Patel MD, MD on 02/27/2017 11: 46 .R/ CC: MARIANGEL BRUNER MD, VERA M MD Feb 28, 2017 00:22
[2017-02-28] MEDS: SOD CHLORIDE 0.9% 1,000 ML IV SCH ×2 (01:38→14:43)
[2017-02-28] MEDS: morphine 2 MG INJ IV PRN ×3 (02:54→20:48)
[2017-02-28 05:13] LABS: ADD SCAN DIFF NO
[2017-02-28 05:21] LABS: BASOPHILS % 0.7 % (0.0-2.0); EOSINOPHILS # 0.1 10^3/ul (0.0-0.5); EOSINOPHILS % 2.3 % (0.0-7.0); HEMATOCRIT 42.5 % (42.0-52.0); HEMOGLOBIN 13.7 g/dl (14.0-18.0); LYMPHOCYTES # 0.9 10^3/ul (0.8-2.9); LYMPHOCYTES % 16.3 % (15.0-51.0); MEAN CORPUSCULAR HEMOGLOBIN 26.9 pg (29.0-33.0); MEAN CORPUSCULAR HGB CONC 32.2 g/dl (32.0-37.0); MEAN CORPUSCULAR VOLUME 83.5 fl (82.0-101.0); MEAN PLATELET VOLUME 9.6 fl (7.4-10.4); MONOCYTE # 0.6 10^3/ul (0.3-0.9); MONOCYTES % 11.5 % (0.0-11.0); NEUTROPHIL # 3.8 10^3/ul (1.6-7.5); NEUTROPHILS % 68.7 % (39.0-77.0); PLATELET COUNT 269 10^3/UL (140-415); RED BLOOD COUNT 5.09 10^6/ul (4.70-6.10); RED CELL DISTRIBUTION WIDTH 14.6 % (11.5-14.5); WHITE BLOOD COUNT 5.6 10^3/ul (4.8-10.8)
[2017-02-28 05:39] LABS: CALCIUM 9.6 mg/dl (8.4-10.2); CREATININE 0.68 mg/dl (0.61-1.24); POTASSIUM 4.4 mmol/L (3.5-5.1)
[2017-02-28] MEDS: PANTOPRAZOLE (EC) 40 MG TAB PO SCH (06:00)
[2017-02-28] MEDS ORDERED: LIDOCAINE 1% (MDV) 20 ML INJ ONE (10:31)
[2017-02-28] MEDS ORDERED: DIPHENHYDRAMINE 50 MG INJ ONE (10:32)
[2017-02-28] MEDS ORDERED: FENTAnyl 50 MCG/ML VIAL ONE (10:32)
[2017-02-28] MEDS ORDERED: MIDAZOLAM 1 MG/ML 2 ML INJ ONE (10:32)
--- NOTE | 2017-02-28 10:51 | CONS ---
Date/Time of Note Date/Time of Note DATE: 02/28/17 TIME: 10:50 Assessment/Plan Assessment/Plan Chief Complaint/Hosp Course Posterior mediastinal and paraspinal soft tissue mass suggestive of neoplasm/ lymphoma. Moderate mediastinal and hilar adenopathy, greater on the left. mild left supraclavicular lymphadenopathy. Mild abdominal lymphadenopathy. There is encasement of the descending thoracic aorta and left main pulmonary artery which is moderately narrowed. RADIOLOGY- REVIEWED BIOCHEMICAL W-U - LDH- VERY HIGH, TUMOR MARKERS- P TISSUE DX WITH ACCESSIBLE LN- WILL D/W RADIOLOGY CT guided biopsy, otherwise pt would need VATS biopsy per CTS rec's CT ABD, PELVIS- 1. Lymphadenopathy is identified in the periaortic retroperitoneum, small bowel mesenteric fat, and bilateral pelvis, as described above. 2. Mild left pleural effusion is again seen, grossly stable. 3. Nonspecific subcentimeter hepatic hypodensities are identified, possibly cysts, though too small to definitively characterize on this exam. BMBX- TO COMPLETE STAGING Small left-sided pleural effusion. chest pain: This likely could be ACS versus the cardiac mass. troponins 3 echocardiogram. consult cardiology DVT and GI prophylaxis: Lovenox, Protonix _ Problems: Consultation Date/Type/Reason Admit Date/Time Feb 25, 2017 at 03:38 Initial Consult Date 02/25/17 Type of Consultation: [facility] Referring Provider: JD PINA 24 HR Interval Summary Free Text/Dictation ALL NOTED Exam/Review of Systems Vital Signs Vitals Vital Signs Date Time Temp Pulse Resp B/P Pulse Ox O2 Delivery O2 Flow Rate FiO2 02/28/17 07:53 97.5 86 19 159/85 99 02/25/17 09:00 Room Air Intake and Output 02/27/17 02/27/17 02/28/17 15:00 23:00 07:00 Intake Total 3260 ml 1230 ml Output Total 2000 ml 900 ml Balance 1260 ml 330 ml Exam General: Patient is well-developed male laying comfortably in bed. HEENT: Atraumatic, normocephalic. The pupils are equal, round and reactive. Extraocular motor are intact Neck: Supple with full range of motion. No rigidity or meningismus Chest: Nontender Lungs: Clear to auscultation bilaterally no crackles rales or wheezing Heart: Normal S1-S2, Regular rhythm and rate. No murmur, S3, or S4 Abdomen: Soft , nontender, nondistended , bowel sounds are present. No guarding no rebound tenderness , No masses or organomegaly. No costovertebral temporal angle mass Extremities: Normal to inspection, no edema no cyanosis Neurologic: Normal mental status, speech normal, cranial nerves II through XII are intact, motor and sensory are intact, no focal weakness Musculoskeletal: Tenderness to palpation at approximately the T8-T10 spine Results Result Diagram: 02/28/1742402/28/17 042 Results 24 hrs Laboratory Tests Test 02/28/17 04:25 White Blood Count 5.6 Red Blood Count 5.09 Hemoglobin 13.7 L Hematocrit 42.5 Mean Corpuscular Volume 83.5 Mean Corpuscular Hemoglobin 26.9 L Mean Corpuscular Hemoglobin Concent 32.2 Red Cell Distribution Width 14.6 H Platelet Count 269 Mean Platelet Volume 9.6 Neutrophils % 68.7 Lymphocytes % 16.3 Monocytes % 11.5 H Eosinophils % 2.3 Basophils % 0.7 Nucleated Red Blood Cells % 0.0 Neutrophils # 3.8 Lymphocytes # 0.9 Monocytes # 0.6 Eosinophils # 0.1 Basophils # 0.0 Nucleated Red Blood Cells # 0.0 Sodium Level 141 Potassium Level 4.4 Chloride Level 99 Carbon Dioxide Level 29 Anion Gap 17 H Blood Urea Nitrogen 11 Creatinine 0.68 Glucose Level 98 Calcium Level 9.6 Medications Medications Current Medications Sodium Chloride (NS) 1,000 ml @ 70 mls/hr [id number] IV Last administered on 01:38; Admin Dose 70 MLS/HR; Start 02/25/17 at 03:52 Ondansetron HCl (Zofran Inj) 4 mg Q6H PRN IV NAUSEA AND/OR VOMITING; Start 02/25 at 04:00 Acetaminophen (Tylenol Tab) 650 mg Q6H PRN PO PAIN LEVEL 1-3 OR FEVER Last administered on 02/28/17 00:07; Admin Dose 650 MG; Start 02/25/17 at 04:00 Morphine Sulfate (morphine) 2 mg Q4H PRN IV PAIN LEVEL 7-10 Last administered on 02/28/17 08:27; Admin Dose 2 MG; Start 02/25/17 at 04:00 Docusate Sodium (Colace) 100 mg Q12H PRN PO CONSTIPATION; Start 02/25/17 at 04: 00 Bisacodyl (Dulcolax) 5 mg DAILY PRN PO CONSTIPATION; Start 02/25/17 at 04:00 Enoxaparin Sodium (Lovenox) 40 mg DAILY SC Last administered on 02/27/17 15:55 ; Admin Dose 40 MG; Start 02/25/17 at 09:00 Hydralazine HCl (Apresoline) 10 mg Q6H PRN IV ELEVATED BLOOD PRESSURE; Start at 10:30 Docusate Sodium (Colace) 100 mg BID PO Last administered on 02/27/17 22:42; Admin Dose 100 MG; Start 02/26/17 at 21:00 Pantoprazole (Protonix Tab) 40 mg DAILY@06 PO ; Start 02/28/17 at 06:00 MARIANGEL BRUNER MD Feb 28, 2017 10:51
--- NOTE | 2017-02-28 12:45 | RADRPT ---
PROCEDURE: CT guided biopsy of posterior mediastinal mass. CLINICAL INDICATION: Posterior mediastinal mass. TECHNIQUE: Prior to the procedure, informed consent was obtained. Risks including bleeding, infec tion, and pneumothorax were explained to the patient. The patient understood was willing to proceed . A procedural pause was performed. The patient's name, date of , and procedure to be perform ed were verified. Using local anesthetic, sterile technique, and CT guidance, a 20-gauge automated core biopsy needle was used to biopsy the mass in the posterior mediastinum with the patient in the prone position. Mu ltiple passes were made. Adequate tissue was obtained according to the pathologist present during t he procedure. The needle was removed. A post biopsy scan was performed. The patient tolerated the procedure well. One or more of the following dose reduction techniques were used: Automated exposu re control, adjustment of the mA and/or kV according to patient size, use of iterative reconstructio n technique. COMPARISON: CT scan of the chest dated 02/25/2017. FINDINGS: Images with the needle in place demonstrate the needle at the posterior margin of the lesion in ques tion. Post biopsy images demonstrate no immediate complication. IMPRESSION: 1. Satisfactory CT guided biopsy of the posterior mediastinal mass. RPTAT: QQ .Conor Foley MD, MD Date Time Electronically viewed and signed by .Conor Foley MD, on 02/28/2017 12:44 .R/
[2017-02-28] MEDS ORDERED: HYDR-906 PO (12:55)
--- NOTE | 2017-02-28 12:55 | PDOCDIS ---
Discharge Instructions CONDITION Patient Condition: Stable HOME CARE INSTRUCTIONS: Diet Instructions: Regular ACTIVITY: Activity Restrictions: Slowly Increase Activity FOLLOW UP/APPOINTMENTS Follow-up Plan Please take your medications as prescribed. Please follow-up with your doctor, especially regarding her pathology results, in the next few days in the clinic. ALMA MULLINS Feb 28, 2017 12:54
[2017-02-28] MEDS: DOCUSATE SODIUM 100 MG CAP PO SCH ×2 (12:59→20:48)
[2017-02-28] MEDS: ENOXAPARIN 40 MG/0.4 ML SYG SC SCH (13:04)
--- NOTE | 2017-02-28 13:07 | PN ---
Date/Time of Note Date/Time of Note DATE: 02/28/17 TIME: 13:04 Assessment/Plan VTE Prophylaxis VTE Prophylaxis Intervention: LMWH Lines/Catheters IV [facility] Peripheral IV Urinary Cath still in place: No Assessment/Plan Chief Complaint/Hosp Course A/P: 61-year-old male being admitted to the telemetry floor for: #1 chest pain: This likely could be ACS versus the cardiac mass. Patient did report that the pain does radiate down her left arm. Has ruled out for ACS. - pain meds, monitor #2 mediastinal mass: CT scan shows: Posterior mediastinal and paraspinal soft tissue mass suggestive of neoplasm/lymphoma. There is encasement of the descending thoracic aorta and left main pulmonary artery which is moderately narrowed. There is also signs of hilar lymphadenopathy. Patient did have CT- guided biopsy today. - f/u hematology, CT surgery rec's, tumor markers. -Follow-up results of CT guided biopsy. Per hematology team, will also need bone marrow biopsy. #3 DVT and GI prophylaxis: Lovenox, Protonix Further treatment strategy will be implemented as per the clinical course Problems: Subjective 24 Hr Interval Summary Free Text/Dictation Patient had CT-guided needle biopsy performed today. Asking when he can go home. Exam/Review of Systems Vital Signs Vitals Vital Signs Date Time Temp Pulse Resp B/P Pulse Ox O2 Delivery O2 Flow Rate FiO2 02/28/17 07:53 97.5 86 19 159/85 99 02/25/17 09:00 Room Air Intake and Output 02/27/17 02/27/17 02/28/17 15:00 23:00 07:00 Intake Total 3260 ml 1230 ml Output Total 2000 ml 900 ml Balance 1260 ml 330 ml Exam General: Patient is well-developed male laying comfortably in bed. HEENT: Atraumatic, normocephalic. The pupils are equal, round and reactive. Extraocular motor are intact Neck: Supple with full range of motion. No rigidity or meningismus Lungs: Clear to auscultation bilaterally no crackles rales or wheezing Heart: Normal S1-S2, Regular rhythm and rate. No murmur, S3, or S4 Abdomen: Soft , nontender, nondistended , bowel sounds are present. No guarding no rebound tenderness , No masses or organomegaly. No costovertebral temporal angle mass Extremities: Normal to inspection, no edema no cyanosis Neurologic: Normal mental status, speech normal, cranial nerves II through XII are intact, motor and sensory are intact, no focal weakness Musculoskeletal: some tenderness to palpation at approximately the T8-T10 spine Results Result Diagram: 02/28/175 02/28/175 Results 24 hrs Laboratory Tests Test 02/28/17 04:25 White Blood Count 5.6 Red Blood Count 5.09 Hemoglobin 13.7 L Hematocrit 42.5 Mean Corpuscular Volume 83.5 Mean Corpuscular Hemoglobin 26.9 L Mean Corpuscular Hemoglobin Concent 32.2 Red Cell Distribution Width 14.6 H Platelet Count 269 Mean Platelet Volume 9.6 Neutrophils % 68.7 Lymphocytes % 16.3 Monocytes % 11.5 H Eosinophils % 2.3 Basophils % 0.7 Nucleated Red Blood Cells % 0.0 Neutrophils # 3.8 Lymphocytes # 0.9 Monocytes # 0.6 Eosinophils # 0.1 Basophils # 0.0 Nucleated Red Blood Cells # 0.0 Sodium Level 141 Potassium Level 4.4 Chloride Level 99 Carbon Dioxide Level 29 Anion Gap 17 H Blood Urea Nitrogen 11 Creatinine 0.68 Glucose Level 98 Calcium Level 9.6 Medications Medications Current Medications Sodium Chloride (NS) 1,000 ml @ 70 mls/hr [id number] IV Last administered on 01:38; Admin Dose 70 MLS/HR; Start 02/25/17 at 03:52 Ondansetron HCl (Zofran Inj) 4 mg Q6H PRN IV NAUSEA AND/OR VOMITING; Start 02/25 at 04:00 Acetaminophen (Tylenol Tab) 650 mg Q6H PRN PO PAIN LEVEL 1-3 OR FEVER Last administered on 02/28/17 00:07; Admin Dose 650 MG; Start 02/25/17 at 04:00 Morphine Sulfate (morphine) 2 mg Q4H PRN IV PAIN LEVEL 7-10 Last administered on 02/28/17 08:27; Admin Dose 2 MG; Start 02/25/17 at 04:00 Docusate Sodium (Colace) 100 mg Q12H PRN PO CONSTIPATION; Start 02/25/17 at 04: 00 Bisacodyl (Dulcolax) 5 mg DAILY PRN PO CONSTIPATION; Start 02/25/17 at 04:00 Enoxaparin Sodium (Lovenox) 40 mg DAILY SC Last administered on 02/27/17 15:55 ; Admin Dose 40 MG; Start 02/25/17 at 09:00 Hydralazine HCl (Apresoline) 10 mg Q6H PRN IV ELEVATED BLOOD PRESSURE; Start at 10:30 Docusate Sodium (Colace) 100 mg BID PO Last administered on 02/27/17 22:42; Admin Dose 100 MG; Start 02/26/17 at 21:00 Pantoprazole (Protonix Tab) 40 mg DAILY@06 PO ; Start 02/28/17 at 06:00 ALMA MULLINS Feb 28, 2017 13:07
[2017-02-28 22:21] LABS: ALBUMIN 3.9 g/dL (3.8-4.8)
[2017-03-01] MEDS: ACETAMINOPHEN 325 MG TAB PO PRN ×2 (00:27→15:06)
[2017-03-01] MEDS: PANTOPRAZOLE (EC) 40 MG TAB PO SCH (05:02)
[2017-03-01] MEDS: SOD CHLORIDE 0.9% 1,000 ML IV SCH ×2 (05:02→22:16)
[2017-03-01 05:16] LABS: ADD SCAN DIFF NO
[2017-03-01 05:20] LABS: BASOPHILS % 0.6 % (0.0-2.0); EOSINOPHILS # 0.1 10^3/ul (0.0-0.5); EOSINOPHILS % 1.7 % (0.0-7.0); HEMATOCRIT 41.8 % (42.0-52.0); HEMOGLOBIN 13.8 g/dl (14.0-18.0); LYMPHOCYTES # 0.8 10^3/ul (0.8-2.9); LYMPHOCYTES % 12.8 % (15.0-51.0); MEAN CORPUSCULAR HEMOGLOBIN 27.7 pg (29.0-33.0); MEAN CORPUSCULAR VOLUME 83.9 fl (82.0-101.0); MONOCYTE # 0.7 10^3/ul (0.3-0.9); MONOCYTES % 11.1 % (0.0-11.0); NEUTROPHIL # 4.8 10^3/ul (1.6-7.5); NEUTROPHILS % 73.3 % (39.0-77.0); PLATELET COUNT 276 10^3/UL (140-415); RED BLOOD COUNT 4.98 10^6/ul (4.70-6.10); RED CELL DISTRIBUTION WIDTH 14.8 % (11.5-14.5); WHITE BLOOD COUNT 6.6 10^3/ul (4.8-10.8)
[2017-03-01 05:45] LABS: CALCIUM 9.2 mg/dl (8.4-10.2); CREATININE 0.74 mg/dl (0.61-1.24); POTASSIUM 4.1 mmol/L (3.5-5.1)
[2017-03-01 07:59] VITALS: BP 157/91; RESP 20
[2017-03-01] MEDS: DOCUSATE SODIUM 100 MG CAP PO SCH ×2 (08:55→21:50)
[2017-03-01] MEDS: ENOXAPARIN 40 MG/0.4 ML SYG SC SCH (08:55)
--- NOTE | 2017-03-01 13:08 | PN ---
Date/Time of Note Date/Time of Note DATE: 03/01/17 TIME: 13:06 Assessment/Plan VTE Prophylaxis VTE Prophylaxis Intervention: LMWH Lines/Catheters IV [facility]ter [facility]from [facility] Peripheral IV Urinary Cath still in place: No Assessment/Plan Chief Complaint/Hosp Course A/P: 61-year-old male being admitted to the telemetry floor for: #1 chest pain: This likely could be ACS versus the cardiac mass. Patient did report that the pain does radiate down her left arm. Has ruled out for ACS. - pain meds, monitor #2 mediastinal mass: CT scan shows: Posterior mediastinal and paraspinal soft tissue mass suggestive of neoplasm/lymphoma. There is encasement of the descending thoracic aorta and left main pulmonary artery which is moderately narrowed. There is also signs of hilar lymphadenopathy. Patient did have CT- guided biopsy yesterday. - f/u hematology, CT surgery rec's, tumor markers. - Follow-up results of CT guided biopsy. Per hematology team, will also need bone marrow biopsy. #3 DVT and GI prophylaxis: Lovenox, Protonix Further treatment strategy will be implemented as per the clinical course Problems: Subjective 24 Hr Interval Summary Free Text/Dictation Pt had no acute events overnight. Had CT guided biopsy performed yesterday. Awaiting possible BM biopsy as well. Exam/Review of Systems Vital Signs Vitals Vital Signs Date Time Temp Pulse Resp B/P Pulse Ox O2 Delivery O2 Flow Rate FiO2 03/01/17 07:59 98.4 89 20 157/91 98 02/28/17 13:11 Room Air 02/28/17 12:00 2 Intake and Output 02/28/17 02/28/17 03/01/17 15:00 23:00 07:00 Intake Total 650 ml 2350 ml 1550 ml Output Total 1800 ml 1900 ml Balance 650 ml 550 ml -350 ml Exam General: Patient is well-developed male laying comfortably in bed. HEENT: Atraumatic, normocephalic. The pupils are equal, round and reactive. Extraocular motor are intact Neck: Supple with full range of motion. No rigidity or meningismus Lungs: Clear to auscultation bilaterally no crackles rales or wheezing Heart: Normal S1-S2, Regular rhythm and rate. No murmur, S3, or S4 Abdomen: Soft , nontender, nondistended , bowel sounds are present. No guarding no rebound tenderness , No masses or organomegaly. No costovertebral temporal angle mass Extremities: Normal to inspection, no edema no cyanosis Neurologic: Normal mental status, speech normal, cranial nerves II through XII are intact, motor and sensory are intact, no focal weakness Musculoskeletal: some tenderness to palpation at approximately the T8-T10 spine Results Result Diagram: 03/01/175 03/01/17 0425 Results 24 hrs Laboratory Tests Test 03/01/17 04:25 White Blood Count 6.6 Red Blood Count 4.98 Hemoglobin 13.8 L Hematocrit 41.8 L Mean Corpuscular Volume 83.9 Mean Corpuscular Hemoglobin 27.7 L Mean Corpuscular Hemoglobin Concent 33.0 Red Cell Distribution Width 14.8 H Platelet Count 276 Mean Platelet Volume 9.0 Neutrophils % 73.3 Lymphocytes % 12.8 L Monocytes % 11.1 H Eosinophils % 1.7 Basophils % 0.6 Nucleated Red Blood Cells % 0.0 Neutrophils # 4.8 Lymphocytes # 0.8 Monocytes # 0.7 Eosinophils # 0.1 Basophils # 0.0 Nucleated Red Blood Cells # 0.0 Sodium Level 138 Potassium Level 4.1 Chloride Level 101 Carbon Dioxide Level 29 Anion Gap 12 Blood Urea Nitrogen 11 Creatinine 0.74 Glucose Level 101 Calcium Level 9.2 Medications Medications Current Medications Sodium Chloride (NS) 1,000 ml @ 70 mls/hr [id number] IV Last administered on 05:02; Admin Dose 70 MLS/HR; Start 02/25/17 at 03:52 Ondansetron HCl (Zofran Inj) 4 mg Q6H PRN IV NAUSEA AND/OR VOMITING; Start 02/25 at 04:00 Acetaminophen (Tylenol Tab) 650 mg Q6H PRN PO PAIN LEVEL 1-3 OR FEVER Last administered on 03/01/17 00:27; Admin Dose 650 MG; Start 02/25/17 at 04:00 Morphine Sulfate (morphine) 2 mg Q4H PRN IV PAIN LEVEL 7-10 Last administered on 02/28/17 20:48; Admin Dose 2 MG; Start 02/25/17 at 04:00 Docusate Sodium (Colace) 100 mg Q12H PRN PO CONSTIPATION; Start 02/25/17 at 04: 00 Bisacodyl (Dulcolax) 5 mg DAILY PRN PO CONSTIPATION; Start 02/25/17 at 04:00 Enoxaparin Sodium (Lovenox) 40 mg DAILY SC Last administered on 03/01/17 08:55 ; Admin Dose 40 MG; Start 02/25/17 at 09:00 Hydralazine HCl (Apresoline) 10 mg Q6H PRN IV ELEVATED BLOOD PRESSURE Last administered on 02/28/17 13:00; Admin Dose 10 MG; Start 02/26/17 at 10:30 Docusate Sodium (Colace) 100 mg BID PO Last administered on 03/01/17 08:55; Admin Dose 100 MG; Start 02/26/17 at 21:00 Pantoprazole (Protonix Tab) 40 mg DAILY@06 PO Last administered on 03/01/17 05: 02; Admin Dose 40 MG; Start 02/28/17 at 06:00 ALMA MULLINS Mar 01, 2017 13:08
[2017-03-01 20:56] VITALS: BP 148/86; RESP 22
--- NOTE | 2017-03-01 23:09 | CONS ---
Date/Time of Note Date/Time of Note DATE: 03/01/17 TIME: 23:08 Assessment/Plan Assessment/Plan Chief Complaint/Hosp Course Posterior mediastinal and paraspinal soft tissue mass suggestive of neoplasm/ lymphoma. Moderate mediastinal and hilar adenopathy, greater on the left. mild left supraclavicular lymphadenopathy. Mild abdominal lymphadenopathy. There is encasement of the descending thoracic aorta and left main pulmonary artery which is moderately narrowed. RADIOLOGY- REVIEWED BIOCHEMICAL W-U - LDH- VERY HIGH, TUMOR MARKERS- P TISSUE DX WITH ACCESSIBLE LN- WILL D/W RADIOLOGY CT guided biopsy, otherwise pt would need VATS biopsy per CTS rec's CT ABD, PELVIS- 1. Lymphadenopathy is identified in the periaortic retroperitoneum, small bowel mesenteric fat, and bilateral pelvis, as described above. 2. Mild left pleural effusion is again seen, grossly stable. 3. Nonspecific subcentimeter hepatic hypodensities are identified, possibly cysts, though too small to definitively characterize on this exam. BMBX- TO COMPLETE STAGING Small left-sided pleural effusion. chest pain: This likely could be ACS versus the cardiac mass. troponins 3 echocardiogram. consult cardiology DVT and GI prophylaxis: Lovenox, Protonix _ Problems: Consultation Date/Type/Reason Admit Date/Time Feb 25, 2017 at 03:38 Initial Consult Date 02/25/17 Type of Consultation: [facility] Referring Provider: JD PINA 24 HR Interval Summary Free Text/Dictation ALL NOTED FOR BMBX TOMORROW Exam/Review of Systems Vital Signs Vitals Vital Signs Date Time Temp Pulse Resp B/P Pulse Ox O2 Delivery O2 Flow Rate FiO2 03/01/17 20:56 98.7 88 22 148/86 100 02/28/17 13:11 Room Air 02/28/17 12:00 2 Intake and Output 02/28/17 02/28/17 03/01/17 15:00 23:00 07:00 Intake Total 650 ml 2350 ml 1550 ml Output Total 1800 ml 1900 ml Balance 650 ml 550 ml -350 ml Exam General: Patient is well-developed male laying comfortably in bed. HEENT: Atraumatic, normocephalic. The pupils are equal, round and reactive. Extraocular motor are intact Neck: Supple with full range of motion. No rigidity or meningismus Chest: Nontender Lungs: Clear to auscultation bilaterally no crackles rales or wheezing Heart: Normal S1-S2, Regular rhythm and rate. No murmur, S3, or S4 Abdomen: Soft , nontender, nondistended , bowel sounds are present. No guarding no rebound tenderness , No masses or organomegaly. No costovertebral temporal angle mass Extremities: Normal to inspection, no edema no cyanosis Neurologic: Normal mental status, speech normal, cranial nerves II through XII are intact, motor and sensory are intact, no focal weakness Musculoskeletal: Tenderness to palpation at approximately the T8-T10 spine Results Result Diagram: 03/01/1742403/01/17424 Results 24 hrs Laboratory Tests Test 03/01/17 04:25 White Blood Count 6.6 Red Blood Count 4.98 Hemoglobin 13.8 L Hematocrit 41.8 L Mean Corpuscular Volume 83.9 Mean Corpuscular Hemoglobin 27.7 L Mean Corpuscular Hemoglobin Concent 33.0 Red Cell Distribution Width 14.8 H Platelet Count 276 Mean Platelet Volume 9.0 Neutrophils % 73.3 Lymphocytes % 12.8 L Monocytes % 11.1 H Eosinophils % 1.7 Basophils % 0.6 Nucleated Red Blood Cells % 0.0 Neutrophils # 4.8 Lymphocytes # 0.8 Monocytes # 0.7 Eosinophils # 0.1 Basophils # 0.0 Nucleated Red Blood Cells # 0.0 Sodium Level 138 Potassium Level 4.1 Chloride Level 101 Carbon Dioxide Level 29 Anion Gap 12 Blood Urea Nitrogen 11 Creatinine 0.74 Glucose Level 101 Calcium Level 9.2 Medications Medications Current Medications Sodium Chloride (NS) 1,000 ml @ 70 mls/hr [id number] IV Last administered on 05:02; Admin Dose 70 MLS/HR; Start 02/25/17 at 03:52 Ondansetron HCl (Zofran Inj) 4 mg Q6H PRN IV NAUSEA AND/OR VOMITING; Start 02/25 at 04:00 Acetaminophen (Tylenol Tab) 650 mg Q6H PRN PO PAIN LEVEL 1-3 OR FEVER Last administered on 03/01/17 15:06; Admin Dose 650 MG; Start 02/25/17 at 04:00 Morphine Sulfate (morphine) 2 mg Q4H PRN IV PAIN LEVEL 7-10 Last administered on 02/28/17 20:48; Admin Dose 2 MG; Start 02/25/17 at 04:00 Docusate Sodium (Colace) 100 mg Q12H PRN PO CONSTIPATION; Start 02/25/17 at 04: 00 Bisacodyl (Dulcolax) 5 mg DAILY PRN PO CONSTIPATION; Start 02/25/17 at 04:00 Hydralazine HCl (Apresoline) 10 mg Q6H PRN IV ELEVATED BLOOD PRESSURE Last administered on 02/28/17 13:00; Admin Dose 10 MG; Start 02/26/17 at 10:30 Docusate Sodium (Colace) 100 mg BID PO Last administered on 03/01/17 21:50; Admin Dose 100 MG; Start 02/26/17 at 21:00 Pantoprazole (Protonix Tab) 40 mg DAILY@06 PO Last administered on 03/01/17 05: 02; Admin Dose 40 MG; Start 02/28/17 at 06:00 Enoxaparin Sodium (Lovenox) 40 mg DAILY SC ; Start 03/03/17 at 09:00 MARIANGEL BRUNER MD Mar 01, 2017 23:09
[2017-03-01] MEDS: morphine 2 MG INJ IV PRN (23:26)
[2017-03-02] VITALS (11 sets, daily range): BP systolic 134–164; BP diastolic 80–104; PULSE 89–99; RESP 18–20
[2017-03-02 05:02] LABS: ADD SCAN DIFF NO
[2017-03-02 05:06] LABS: BASOPHILS % 0.7 % (0.0-2.0); EOSINOPHILS # 0.1 10^3/ul (0.0-0.5); EOSINOPHILS % 1.5 % (0.0-7.0); HEMATOCRIT 41.1 % (42.0-52.0); HEMOGLOBIN 13.5 g/dl (14.0-18.0); LYMPHOCYTES # 0.8 10^3/ul (0.8-2.9); LYMPHOCYTES % 13.4 % (15.0-51.0); MEAN CORPUSCULAR HEMOGLOBIN 27.2 pg (29.0-33.0); MEAN CORPUSCULAR HGB CONC 32.8 g/dl (32.0-37.0); MEAN CORPUSCULAR VOLUME 82.9 fl (82.0-101.0); MEAN PLATELET VOLUME 9.1 fl (7.4-10.4); MONOCYTE # 0.7 10^3/ul (0.3-0.9); MONOCYTES % 11.8 % (0.0-11.0); NEUTROPHIL # 4.3 10^3/ul (1.6-7.5); NEUTROPHILS % 72.1 % (39.0-77.0); PLATELET COUNT 285 10^3/UL (140-415); RED BLOOD COUNT 4.96 10^6/ul (4.70-6.10); RED CELL DISTRIBUTION WIDTH 14.9 % (11.5-14.5); WHITE BLOOD COUNT 5.9 10^3/ul (4.8-10.8)
[2017-03-02 05:38] LABS: CALCIUM 9.5 mg/dl (8.4-10.2); CREATININE 0.74 mg/dl (0.61-1.24); POTASSIUM 4.1 mmol/L (3.5-5.1)
[2017-03-02] MEDS: PANTOPRAZOLE (EC) 40 MG TAB PO SCH (06:00)
[2017-03-02] MEDS: DOCUSATE SODIUM 100 MG CAP PO SCH ×2 (08:07→20:46)
[2017-03-02] MEDS ORDERED: FENTAnyl 50 MCG/ML VIAL ONE (09:37)
[2017-03-02] MEDS ORDERED: LIDOCAINE 1% (MDV) 20 ML INJ ONE (09:37)
[2017-03-02] MEDS ORDERED: SOD CHLORIDE 0.9% 100 ML ONE (09:37)
[2017-03-02] MEDS ORDERED: MIDAZOLAM 1 MG/ML 2 ML INJ ONE (09:38)
--- NOTE | 2017-03-02 11:04 | RADRPT ---
PROCEDURE: CT guided bone marrow aspiration and left iliac bone biopsy. CLINICAL INDICATION: History of pancytopenia. TECHNIQUE: Informed consent was obtained. The procedure, risks, benefits, complications and alternatives were e xplained to the patient. Risks including bleeding and infection were explained. The patient understo od and was willing to proceed. A procedural pause was performed. The patient's name, date of , and procedure to be performed were verified. One or more of the following dose reduction techni ques were used: Automated exposure control, adjustment of the mA and/or kV according to patient size , use of iterative reconstruction technique. Using local anesthetic, sterile technique and CT guidance, an 11-gauge On Control bone biopsy needle was advanced into the left iliac bone via a posterior approach. Bone marrow aspiration was perform ed yielding approximately 10 ml. The bone biopsy needle was then advanced an additional 4 cm using the power drill device and tissue was obtained. Adequate tissue was obtained according to the patho logist present during the procedure. The needle was removed. A postprocedural scan was performed. A dressing was applied. The patient tolerated procedure well. COMPARISON: None. FINDINGS: Initial images demonstrate the tip of the needle at the posterior margin of the left iliac bone. [place] bsequent images demonstrate the needle within the bone. Post biopsy images demonstrate no immediate complication. IMPRESSION: 1. Successful CT guided bone marrow aspiration and biopsy. RPTAT: QQ .Conor Foley MD, Date Time Electronically viewed and signed by .Conor Foley MD, on 03/02/2017 11:03 .R/
[2017-03-02] MEDS: SOD CHLORIDE 0.9% 1,000 ML IV SCH (12:34)
--- NOTE | 2017-03-02 12:50 | PN ---
Date/Time of Note Date/Time of Note DATE: 03/02/17 TIME: 12:47 Assessment/Plan VTE Prophylaxis VTE Prophylaxis Intervention: LMWH Lines/Catheters IV [facility] (from [facility]): Peripheral IV Urinary Cath still in place: No Assessment/Plan Chief Complaint/Hosp Course A/P: 61-year-old male being admitted to the telemetry floor for: #1 chest pain: This likely could be ACS versus the cardiac mass. Patient did report that the pain does radiate down her left arm. Has ruled out for ACS. - pain meds, monitor #2 mediastinal mass: CT scan shows: Posterior mediastinal and paraspinal soft tissue mass suggestive of neoplasm/lymphoma. There is encasement of the descending thoracic aorta and left main pulmonary artery which is moderately narrowed. There is also signs of hilar lymphadenopathy. Patient did have CT- guided biopsy 2 days ago, and also a bone marrow biopsy today. - f/u hematology, CT surgery rec's, tumor markers. - Follow-up results of both biopsy results (pending)opsy. #3 DVT and GI prophylaxis: Lovenox, Protonix Further treatment strategy will be implemented as per the clinical course Problems: Subjective 24 Hr Interval Summary Free Text/Dictation Patient had his CT-guided bone marrow biopsy today. Denies any pain complaints. Eager for the results from pathology which are still pending Exam/Review of Systems Vital Signs Vitals Vital Signs Date Time Temp Pulse Resp B/P Pulse Ox O2 Delivery O2 Flow Rate FiO2 03/02/17 11:05 89 20 140/88 03/02/17 11:00 Nasal Cannula 2 03/02/17 10:45 94 03/02/17 10:00 98.6 Intake and Output 03/01/17 03/01/17 03/02/17 15:00 23:00 07:00 Intake Total 420 ml 850 ml Balance 420 ml 850 ml Exam General: Patient is well-developed male laying comfortably in bed. HEENT: Atraumatic, normocephalic. The pupils are equal, round and reactive. Extraocular motor are intact Neck: Supple with full range of motion. No rigidity or meningismus Lungs: Clear to auscultation bilaterally no crackles rales or wheezing Heart: Normal S1-S2, Regular rhythm and rate. No murmur, S3, or S4 Abdomen: Soft , nontender, nondistended , bowel sounds are present. No guarding no rebound tenderness , No masses or organomegaly. No costovertebral temporal angle mass Extremities: Normal to inspection, no edema no cyanosis Neurologic: Normal mental status, speech normal, cranial nerves II through XII are intact, motor and sensory are intact, no focal weakness Musculoskeletal: some tenderness to palpation at approximately the T8-T10 spine Results Result Diagram: 03/02/17 04203/02/17 0420 Results 24 hrs Laboratory Tests Test 03/02/17 04:20 White Blood Count 5.9 Red Blood Count 4.96 Hemoglobin 13.5 L Hematocrit 41.1 L Mean Corpuscular Volume 82.9 Mean Corpuscular Hemoglobin 27.2 L Mean Corpuscular Hemoglobin Concent 32.8 Red Cell Distribution Width 14.9 H Platelet Count 285 Mean Platelet Volume 9.1 Neutrophils % 72.1 Lymphocytes % 13.4 L Monocytes % 11.8 H Eosinophils % 1.5 Basophils % 0.7 Nucleated Red Blood Cells % 0.0 Neutrophils # 4.3 Lymphocytes # 0.8 Monocytes # 0.7 Eosinophils # 0.1 Basophils # 0.0 Nucleated Red Blood Cells # 0.0 Sodium Level 141 Potassium Level 4.1 Chloride Level 98 Carbon Dioxide Level 31 Anion Gap 16 Blood Urea Nitrogen 13 Creatinine 0.74 Glucose Level 96 Calcium Level 9.5 Medications Medications Current Medications Sodium Chloride (NS) 1,000 ml @ 70 mls/hr [id number] IV Last administered on 05:02; Admin Dose 70 MLS/HR; Start 02/25/17 at 03:52 Ondansetron HCl (Zofran Inj) 4 mg Q6H PRN IV NAUSEA AND/OR VOMITING; Start 02/25 at 04:00 Acetaminophen (Tylenol Tab) 650 mg Q6H PRN PO PAIN LEVEL 1-3 OR FEVER Last administered on 03/01/17 15:06; Admin Dose 650 MG; Start 02/25/17 at 04:00 Morphine Sulfate (morphine) 2 mg Q4H PRN IV PAIN LEVEL 7-10 Last administered on 03/01/17 23:26; Admin Dose 2 MG; Start 02/25/17 at 04:00 Docusate Sodium (Colace) 100 mg Q12H PRN PO CONSTIPATION; Start 02/25/17 at 04: 00 Bisacodyl (Dulcolax) 5 mg DAILY PRN PO CONSTIPATION; Start 02/25/17 at 04:00 Hydralazine HCl (Apresoline) 10 mg Q6H PRN IV ELEVATED BLOOD PRESSURE Last administered on 02/28/17 13:00; Admin Dose 10 MG; Start 02/26/17 at 10:30 Docusate Sodium (Colace) 100 mg BID PO Last administered on 03/01/17 21:50; Admin Dose 100 MG; Start 02/26/17 at 21:00 Pantoprazole (Protonix Tab) 40 mg DAILY@06 PO Last administered on 03/01/17 05: 02; Admin Dose 40 MG; Start 02/28/17 at 06:00 Enoxaparin Sodium (Lovenox) 40 mg DAILY SC ; Start 03/03/17 at 09:00 ALMA MULLINS Mar 02, 2017 12:49
[2017-03-02] MEDS: ACETAMINOPHEN 325 MG TAB PO PRN (19:16)
[2017-03-02] MEDS: morphine 2 MG INJ IV PRN (23:44)
--- NOTE | 2017-03-02 23:52 | CONS ---
Date/Time of Note Date/Time of Note DATE: 03/02/17 TIME: 23:48 Assessment/Plan Assessment/Plan Chief Complaint/Hosp Course Diffuse large B-cell lymphoma with sclerosis, germinal center type. Posterior mediastinal and paraspinal soft tissue mass suggestive of neoplasm/ lymphoma. Moderate mediastinal and hilar adenopathy, greater on the left. mild left supraclavicular lymphadenopathy. Mild abdominal lymphadenopathy. There is encasement of the descending thoracic aorta and left main pulmonary artery which is moderately narrowed. RADIOLOGY- REVIEWED BIOCHEMICAL W-U - LDH- VERY HIGH, TUMOR MARKERS- P TISSUE DX WITH ACCESSIBLE LN- WILL D/W RADIOLOGY CT guided biopsy, otherwise pt would need VATS biopsy per CTS rec's CT ABD, PELVIS- 1. Lymphadenopathy is identified in the periaortic retroperitoneum, small bowel mesenteric fat, and bilateral pelvis, as described above. 2. Mild left pleural effusion is again seen, grossly stable. 3. Nonspecific subcentimeter hepatic hypodensities are identified, possibly cysts, though too small to definitively characterize on this exam. BMBX- TO COMPLETE STAGING- P WILL D/W PT - DX,PROGNOSIS AND TREATMENT OPTIONS PLAN- START CHEMO NOTE- LVEF- N WITH Ejection fraction is visually estimated at 60 %. Small left-sided pleural effusion. chest pain: This likely could be ACS versus the cardiac mass. troponins 3 echocardiogram. cardiology F-UP DVT and GI prophylaxis: Lovenox, Protonix _ Problems: Consultation Date/Type/Reason Admit Date/Time Feb 25, 2017 at 03:38 Initial Consult Date 02/25/17 Type of Consultation: [facility] Referring Provider: JD PINA 24 HR Interval Summary Free Text/Dictation ALL NOTED Exam/Review of Systems Vital Signs Vitals Vital Signs Date Time Temp Pulse Resp B/P Pulse Ox O2 Delivery O2 Flow Rate FiO2 03/02/17 20:21 98.3 91 18 134/88 97 03/02/17 11:00 Nasal Cannula 2 Intake and Output 03/01/17 03/01/17 03/02/17 15:00 23:00 07:00 Intake Total 420 ml 850 ml Balance 420 ml 850 ml Exam General: Patient is well-developed male laying comfortably in bed. HEENT: Atraumatic, normocephalic. The pupils are equal, round and reactive. Extraocular motor are intact Neck: Supple with full range of motion. No rigidity or meningismus Chest: Nontender Lungs: Clear to auscultation bilaterally no crackles rales or wheezing Heart: Normal S1-S2, Regular rhythm and rate. No murmur, S3, or S4 Abdomen: Soft , nontender, nondistended , bowel sounds are present. No guarding no rebound tenderness , No masses or organomegaly. No costovertebral temporal angle mass Extremities: Normal to inspection, no edema no cyanosis Neurologic: Normal mental status, speech normal, cranial nerves II through XII are intact, motor and sensory are intact, no focal weakness Musculoskeletal: Tenderness to palpation at approximately the T8-T10 spine [facility] a [facility] [place] [address] ; Lab No: [id number] Date: 02/28/2017 INTRA-OPERATIVE TOUCH IMPRINTS WITH IMMEDIATE EXAMINATION: -Atypical cells present. Tissue in RPMI for flow cytometry/DK (02/28/17; 11:55 a.m.) SPECIMEN: Left posterior mediastinal mass CLINICAL: Mediastinal mass GROSS EXAMINATION: Received in two containers of formalin and a container of B5 are six needle core biopsies of [place] and pink tissue that measure 0.2 to 0.7 cm and are each less than 0.1 cm in diameter. The B5 fixed tissue is totally submitted in cassette #1 with formalin fixed tissue totally submitted in cassettes 2 and 3. Also received are two air dried touch imprints stained with Diff-Quik. MICROSCOPIC DESCRIPTION: Core needle biopsies of the left posterior mediastinal mass demonstrate a neoplasm with markedly sclerotic stroma and crush artifact. In well preserved areas there are clusters and ribbons of large lymphocytes with round to irregular vesicular and hyperchromatic nuclei containing small chromocenters. Cells possess a moderate to abundant amount of cytoplasm. Occasional mitotic figures are identified. Scattered foci of apoptotic cells are seen and there is focal early necrosis. The stroma shows variable collagen fibrosis with some areas containing thick collagen bands. The histopathologic features are consistent with diffuse large cell lymphoma with sclerosis. To confirm the histologic impression, paraffin block #2 is forwarded to [facility] for the performance of a panel of immunohistochemical stains. The stains are accompanied by appropriate positive and negative controls, all of which work correctly. Results of staining on the large cells are as follows: BCL1: Negative BCL2: Positive, cytoplasmic, diffuse BCL6: Positive, nuclear CD3: Positive in T-cells, cytoplasmic CD5: Positive in rare small cells, cytoplasmic CD10: Weakly positive, membranous CD20: Positive, cytoplasmic, diffuse CD45: Positive, cytoplasmic, diffuse Ki-67: Positive (80-85% of large cells). MUM1: Negative The immunohistochemical staining pattern supports a diagnosis of B-cell lymphoma , germinal center phenotype. The final diagnosis is diffuse large B-cell lymphoma with sclerosis , germinal center type. FLOW CYTOMETRY: Please see the attached report of flow cytometry performed at [facility] (case #[id number]; 03/01/17). Flow cytometry shows detection of an abnormal B-cell population. The specimen is paucicellular with decrease viability which resulted in a limited panel of antibodies being performed. Studies showed lymphocytes representing 49.6% of analyzed cells with mature B- cells (59% of lymphoid cells) demonstrating obscured deemed lambda light chain restriction with deem CD5 and equivocal deem CD10. These findings are highly suspicious for involvement by B-cell lymphoma; however, correlation with the clinical history, morphology and immunohistochemical findings was recommended for confirmation. MICROSCOPIC DIAGNOSIS: Left posterior medial stain mass, CT-guided core needle biopsies with touch imprints: -- Diffuse large B-cell lymphoma with sclerosis, germinal center type. COMMENT: The findings are telephoned to Dr. Jack Mullins and Dr. Villa Johnson on 03/02/17. This case has also been reviewed by Shin Berger M.D., who concurs with the above interpretation. NACHO/CRISTINA/bindu/mirian Date of Service: 03/01/17; Date Received: 03/01/17 Dictated: 03/02/17; Transcribed: 03/02/17; Sent by Fax: 03/02/17; Reviewed: WS COMMENT: The immunoperoxidase stains reported above were developed and its performance characteristics determined by [facility] It has not been cleared or approved by the U.S. Food and Drug Administration, although such approval is not required for analyte-specific reagents of this type. James Ureña M.D. Pathologist Electronically Signed 03/02/2017 JAMES UREÑA M.D. PATIENT: HUNG STEVENS [employer] of Laboratory AGE/SEX/: 61/M 1955 MR NO: [id number] VISIT: [id number] ROOM NO: [id number] PHYSICIAN: Zonia PINA, JD MULLINS M.D., G.S. TISSUE EXAMINATION REPORT Zonia JOHNSON VERA M. Results Result Diagram: 03/02/17 0420 03/02/17 0420 Results 24 hrs Laboratory Tests Test 03/02/17 04:20 White Blood Count 5.9 Red Blood Count 4.96 Hemoglobin 13.5 L Hematocrit 41.1 L Mean Corpuscular Volume 82.9 Mean Corpuscular Hemoglobin 27.2 L Mean Corpuscular Hemoglobin Concent 32.8 Red Cell Distribution Width 14.9 H Platelet Count 285 Mean Platelet Volume 9.1 Neutrophils % 72.1 Lymphocytes % 13.4 L Monocytes % 11.8 H Eosinophils % 1.5 Basophils % 0.7 Nucleated Red Blood Cells % 0.0 Neutrophils # 4.3 Lymphocytes # 0.8 Monocytes # 0.7 Eosinophils # 0.1 Basophils # 0.0 Nucleated Red Blood Cells # 0.0 Sodium Level 141 Potassium Level 4.1 Chloride Level 98 Carbon Dioxide Level 31 Anion Gap 16 Blood Urea Nitrogen 13 Creatinine 0.74 Glucose Level 96 Calcium Level 9.5 Medications Medications Current Medications Sodium Chloride (NS) 1,000 ml @ 70 mls/hr [id number] IV Last administered on 05:02; Admin Dose 70 MLS/HR; Start 02/25/17 at 03:52 Ondansetron HCl (Zofran Inj) 4 mg Q6H PRN IV NAUSEA AND/OR VOMITING; Start 02/25 at 04:00 Acetaminophen (Tylenol Tab) 650 mg Q6H PRN PO PAIN LEVEL 1-3 OR FEVER Last administered on 03/02/17 19:16; Admin Dose 650 MG; Start 02/25/17 at 04:00 Morphine Sulfate (morphine) 2 mg Q4H PRN IV PAIN LEVEL 7-10 Last administered on 03/02/17 23:44; Admin Dose 2 MG; Start 02/25/17 at 04:00 Docusate Sodium (Colace) 100 mg Q12H PRN PO CONSTIPATION; Start 02/25/17 at 04: 00 Bisacodyl (Dulcolax) 5 mg DAILY PRN PO CONSTIPATION Last administered on 14:46; Admin Dose 5 MG; Start 02/25/17 at 04:00 Hydralazine HCl (Apresoline) 10 mg Q6H PRN IV ELEVATED BLOOD PRESSURE Last administered on 02/28/17 13:00; Admin Dose 10 MG; Start 02/26/17 at 10:30 Docusate Sodium (Colace) 100 mg BID PO Last administered on 03/02/17 20:46; Admin Dose 100 MG; Start 02/26/17 at 21:00 Pantoprazole (Protonix Tab) 40 mg DAILY@06 PO Last administered on 03/01/17 05: 02; Admin Dose 40 MG; Start 02/28/17 at 06:00 Enoxaparin Sodium (Lovenox) 40 mg DAILY SC ; Start 03/03/17 at 09:00 MARIANGEL JOHNSON MD Mar 02, 2017 23:52
[2017-03-03] MEDS: SOD CHLORIDE 0.9% 1,000 ML IV SCH (02:52)
[2017-03-03 05:23] LABS: ADD SCAN DIFF NO
[2017-03-03 05:31] LABS: BASOPHIL # 0.1 10^3/ul (0.0-0.1); BASOPHILS % 0.8 % (0.0-2.0); EOSINOPHILS # 0.1 10^3/ul (0.0-0.5); EOSINOPHILS % 1.6 % (0.0-7.0); HEMATOCRIT 41.2 % (42.0-52.0); HEMOGLOBIN 13.9 g/dl (14.0-18.0); LYMPHOCYTES # 0.8 10^3/ul (0.8-2.9); LYMPHOCYTES % 12.3 % (15.0-51.0); MEAN CORPUSCULAR HEMOGLOBIN 27.7 pg (29.0-33.0); MEAN CORPUSCULAR HGB CONC 33.7 g/dl (32.0-37.0); MEAN CORPUSCULAR VOLUME 82.1 fl (82.0-101.0); MEAN PLATELET VOLUME 9.2 fl (7.4-10.4); MONOCYTE # 0.7 10^3/ul (0.3-0.9); MONOCYTES % 11.3 % (0.0-11.0); NEUTROPHIL # 4.6 10^3/ul (1.6-7.5); NEUTROPHILS % 73.7 % (39.0-77.0); PLATELET COUNT 292 10^3/UL (140-415); RED BLOOD COUNT 5.02 10^6/ul (4.70-6.10); RED CELL DISTRIBUTION WIDTH 15.2 % (11.5-14.5); WHITE BLOOD COUNT 6.3 10^3/ul (4.8-10.8)
[2017-03-03 06:01] LABS: CALCIUM 9.7 mg/dl (8.4-10.2); CREATININE 0.74 mg/dl (0.61-1.24); POTASSIUM 4.6 mmol/L (3.5-5.1)
[2017-03-03] MEDS: PANTOPRAZOLE (EC) 40 MG TAB PO SCH (06:36)
[2017-03-03 07:00] VITALS: BP 144/86; RESP 18
[2017-03-03] MEDS: DOCUSATE SODIUM 100 MG CAP PO SCH (08:32)
[2017-03-03] MEDS ORDERED: ENOXAPARIN 40 MG/0.4 ML SYG SC SCH (09:00)
--- NOTE | 2017-03-03 13:50 | DS ---
Date/Time of Note Date/Time of Note DATE: 03/03/17 TIME: 13:47 Discharge Summary Admission/Discharge Info Admit Date/Time Feb 25, 2017 at 03:38 Discharge Date/Time Discharge Diagnosis #1 chest pain: Has ruled out for ACS. #2 mediastinal mass: CT scan shows: Posterior mediastinal and paraspinal soft tissue mass suggestive of neoplasm/lymphoma. There is encasement of the descending thoracic aorta and left main pulmonary artery which is moderately narrowed. There is also signs of hilar lymphadenopathy. Patient did have CT- guided biopsy = positive for diffuse large B-cell lymphoma with sclerosis Patient Condition: Stable Hx of Present Illness Hospital Course 61-year-old male, presenting to the ER because of left-sided chest pain and numbness radiating to the left upper back intermittently for more than a month, worse when he laid down, associated with pleuritic chest pain. He denies chest pain with exertion of vomiting or diaphoresis. He was seen in the ER about 3 weeks ago for similar symptoms, has not seen his physician yet. He denies fever , cough, syncope, near syncope, abdominal pain, vomiting, dysuria, diarrhea. He does not smoke nor drink. He was admitted to [facility], underwent [address]-guided biopsy of the mediastinal mass. He also had a bone marrow biopsy performed as well. The mediastinal mass came back positive for diffuse large B-cell lymphoma with sclerosis, germinal type. Patient was seen by hematology oncology team, and recommended for outpatient chemotherapy for treatment of this. Over the course of his hospital stay his chest pain symptoms improved, he was able to ambulate, tolerated p.o. diet. He ruled out for acute coronary syndrome. His vital signs are stable today. He will be discharged home today in improved condition with follow-up with hematology oncology team in the clinic. Home Meds Active Scripts Hydrocodone/Acetaminophen (Orange 5-325 Tablet) 1 Each Tablet, 1 EACH PO Q6, #10 TAB Prov:ALMA MULLINS 02/28/17 Ibuprofen* (Motrin*) 600 Mg Tab, 600 MG PO Q8, #30 TAB Prov:AJITH ALONZO MD 01/30/17 Primary Care Provider Care Physician No Primary Time spent on discharge: > 30 minutes Pending Labs Laboratory Tests Test 03/03/17 04:50 White Blood Count 6.310^3/ul (4.8-10.8) Red Blood Count 5.0210^6/ul (4.70-6.10) Hemoglobin 13.9g/dl (14.0-18.0) Hematocrit 41.2% (42.0-52.0) Mean Corpuscular Volume 82.1fl (82.0-101.0) Mean Corpuscular Hemoglobin 27.7pg (29.0-33.0) Mean Corpuscular Hemoglobin Concent 33.7g/dl (32.0-37.0) Red Cell Distribution Width 15.2% (11.5-14.5) Platelet Count 74010^3/UL (140-415) Mean Platelet Volume 9.2fl (7.4-10.4) Neutrophils % 73.7% (39.0-77.0) Lymphocytes % 12.3% (15.0-51.0) Monocytes % 11.3% (0.0-11.0) Eosinophils % 1.6% (0.0-7.0) Basophils % 0.8% (0.0-2.0) Nucleated Red Blood Cells % 0.0/100WBC (0.0-0.0) Neutrophils # 4.610^3/ul (1.6-7.5) Lymphocytes # 0.810^3/ul (0.8-2.9) Monocytes # 0.710^3/ul (0.3-0.9) Eosinophils # 0.110^3/ul (0.0-0.5) Basophils # 0.110^3/ul (0.0-0.1) Nucleated Red Blood Cells # 0.010^3/ul (0.0-0.0) Sodium Level 141mmol/L (135-144) Potassium Level 4.6mmol/L (3.5-5.1) Chloride Level 97mmol/L (97-110) Carbon Dioxide Level 32mmol/L (21-31) Anion Gap 17 (8-16) Blood Urea Nitrogen 13mg/dl (7-20) Creatinine 0.74mg/dl (0.61-1.24) Glucose Level 101mg/dl (70-220) Calcium Level 9.7mg/dl (8.4-10.2) ALMA MULLINS Mar 03, 2017 13:50
--- NOTE | 2017-03-03 19:07 | CONS ---
Date/Time of Note Date/Time of Note DATE: 03/03/17 TIME: 08:05 VK LE Assessment/Plan Assessment/Plan Chief Complaint/Hosp Course Diffuse large B-cell lymphoma with sclerosis, germinal center type. Posterior mediastinal and paraspinal soft tissue mass suggestive of neoplasm/ lymphoma. Moderate mediastinal and hilar adenopathy, greater on the left. mild left supraclavicular lymphadenopathy. Mild abdominal lymphadenopathy. There is encasement of the descending thoracic aorta and left main pulmonary artery which is moderately narrowed. RADIOLOGY- REVIEWED BIOCHEMICAL W-U - LDH- VERY HIGH, TUMOR MARKERS- P TISSUE DX WITH ACCESSIBLE LN- WILL D/W RADIOLOGY CT guided biopsy, otherwise pt would need VATS biopsy per CTS rec's CT ABD, PELVIS- 1. Lymphadenopathy is identified in the periaortic retroperitoneum, small bowel mesenteric fat, and bilateral pelvis, as described above. 2. Mild left pleural effusion is again seen, grossly stable. 3. Nonspecific subcentimeter hepatic hypodensities are identified, possibly cysts, though too small to definitively characterize on this exam. BMBX- TO COMPLETE STAGING- P D/W PT - RE DX,PROGNOSIS AND TREATMENT OPTIONS PLAN- START CHEMO OUTPT NOTE- LVEF- N WITH Ejection fraction is visually estimated at 60 %. Small left-sided pleural effusion. chest pain: This likely could be ACS versus the cardiac mass. troponins 3 echocardiogram. cardiology F-UP DVT and GI prophylaxis: Lovenox, Protonix OK TO DC F-UP OUTPT Problems: Consultation Date/Type/Reason Admit Date/Time Feb 25, 2017 at 03:38 Initial Consult Date 02/25/17 Type of Consultation: [facility] Referring Provider: JD PINA 24 HR Interval Summary Free Text/Dictation ALL NOTED D/W PT IN DETAILS PATH- REVIEWED Exam/Review of Systems Vital Signs Vitals Vital Signs Date Time Temp Pulse Resp B/P Pulse Ox O2 Delivery O2 Flow Rate FiO2 03/03/17 07:00 98.7 85 18 144/86 95 03/02/17 11:00 Nasal Cannula 2 Intake and Output 03/02/17 03/02/17 03/03/17 15:00 23:00 07:00 Intake Total 175 ml 1040 ml 650 ml Output Total 900 ml Balance 175 ml 140 ml 650 ml Exam General: Patient is well-developed male laying comfortably in bed. HEENT: Atraumatic, normocephalic. The pupils are equal, round and reactive. Extraocular motor are intact Neck: Supple with full range of motion. No rigidity or meningismus Chest: Nontender Lungs: Clear to auscultation bilaterally no crackles rales or wheezing Heart: Normal S1-S2, Regular rhythm and rate. No murmur, S3, or S4 Abdomen: Soft , nontender, nondistended , bowel sounds are present. No guarding no rebound tenderness , No masses or organomegaly. No costovertebral temporal angle mass Extremities: Normal to inspection, no edema no cyanosis Neurologic: Normal mental status, speech normal, cranial nerves II through XII are intact, motor and sensory are intact, no focal weakness Musculoskeletal: Tenderness to palpation at approximately the T8-T10 spine Results Result Diagram: 03/03/17 0450 03/03/17 0450 Results 24 hrs Laboratory Tests Test 03/03/17 04:50 White Blood Count 6.3 Red Blood Count 5.02 Hemoglobin 13.9 L Hematocrit 41.2 L Mean Corpuscular Volume 82.1 Mean Corpuscular Hemoglobin 27.7 L Mean Corpuscular Hemoglobin Concent 33.7 Red Cell Distribution Width 15.2 H Platelet Count 292 Mean Platelet Volume 9.2 Neutrophils % 73.7 Lymphocytes % 12.3 L Monocytes % 11.3 H Eosinophils % 1.6 Basophils % 0.8 Nucleated Red Blood Cells % 0.0 Neutrophils # 4.6 Lymphocytes # 0.8 Monocytes # 0.7 Eosinophils # 0.1 Basophils # 0.1 Nucleated Red Blood Cells # 0.0 Sodium Level 141 Potassium Level 4.6 Chloride Level 97 Carbon Dioxide Level 32 H Anion Gap 17 H Blood Urea Nitrogen 13 Creatinine 0.74 Glucose Level 101 Calcium Level 9.7 MARIANGEL BRUNER MD Mar 03, 2017 19:06
== END 2017-03-03 16:30 | disposition home or self-care (01) | DRG 842 ==
LOC: E/R 23:35 → MS1 02-25 03:38
PROVIDERS: ADMIT Family Medicine; ATTEND Family Medicine
PROC: 07DR3ZX Extraction of Iliac Bone Marrow, Percutaneous Approach, Diagnostic (ICD-10-PCS; 2017-02-25)
PROC: 0WBC3ZX Excision of Mediastinum, Percutaneous Approach, Diagnostic (ICD-10-PCS; principal; 2017-02-28)
DX: C83.32 Diffuse large B-cell lymphoma, intrathoracic lymph nodes (principal); I51.7 Cardiomegaly; R59.0 Localized enlarged lymph nodes; R07.9 Chest pain, unspecified; I77.1 Stricture of artery
CPT/HCPCS: 36415; 71010; 71275; 74178; 77012; 80048; 80053; 80061; 80076; 82105; 82306; 82378; 82550; 82553; 82728; 82746; 83036; 83615; 83735; 84100; 84155; 84165; 84443; 84484; 84560; 85025; 85610; 85651; 85730; 88305; 88307; 88313; 88341; 88342; 93005; 93306; 96374; 96375; 96376; C9113; J0360; J1200; J1650; J2250; J2270; J2405; J3010; J7030; Q9967